=== PATIENT | male | born 1940 | race Caucasian/White ===

== ENCOUNTER 2017-06-16 14:39 | Outpatient (CLI) | payer MEDICARE, OTHER ==
--- NOTE | 2017-06-24 08:51 | PFT ---
PATIENT HISTORY: HEIGHT: 70 IN WEIGHT: 222 LBS SMOKER: QUIT HOW LON YEARS PACKS PER DAY:3 PRODUCTIVE COUGH: YES LUNG DISEASE: PHYSICIAN INTERPRETATION FINAL REPORT: Moderate reduction in VC and expiratory flows. There was a moderate improvement following the bronchodilator. TLC and RV are normal. IMPRESSION: Restrictive impairment, with borderline reduction in the diffusion capacity. Medical Supervisor: SHAGGY Construction Representative: SHAGGY MEADOWS
== END 2017-06-16 14:40 | disposition home or self-care (01) ==
LOC: CP 14:39
PROVIDERS: ATTEND Family Medicine
DX: R06.09 Other forms of dyspnea (principal)
CPT/HCPCS: 94060; 94727; 94729

== ENCOUNTER 2017-09-08 12:22 | Day surgery (SDC) | payer MEDICARE ==
[2017-09-07 09:25] VITALS: BMI 30.5
--- NOTE | 2017-09-08 15:51 | RAD ---
2 VIEWS SKULL: Date: 09/08/17 INDICATION: MRI clearance. History of prior metal in eyes. FINDINGS: There is no evidence of metallic foreign body seen overlying either orbit or within the scalp or skul l. IMPRESSION: No evidence of foreign body. Patient is cleared for MRI. POS: [facility]
--- NOTE | 2017-09-08 16:16 | MRI ---
MRI CERVICAL SPINE: 09/08/17 Multiplanar and multisequential imaging cervical spine obtained. HISTORY: Neck pain. COMPARISON: No comparison. Cervical vertebrae maintain height and alignment. There is loss of disc space at all levels of the ce rvical spine. Mild degenerative osteophytes are seen from the cervical vertebrae. At C3-4, there is posterior spondylosis which effaces anterior subarachnoid space. No cord impingemen t and foraminal stenosis. At C4-5, mild disc bulge and spondylosis effaces the anterior subarachnoid space. These changes abut the cord. no evidence of significant foraminal stenosis. At C5-6, mild disc bulge and spondylosis efface the anterior subarachnoid space without significant c ord impingement. No significant foraminal encroachment. At C6-7, mild disc bulge and spondylosis. There is mild effacement of the anterior subarachnoid space . No cord impingement. No foraminal stenosis seen. Cervical cord signal appears normal. IMPRESSION: There are mild spondylitic changes in the cervical spine as described above. These changes abut the c ord at C4-5. POS: [facility]
== END 2017-09-08 17:10 | disposition home or self-care (01) ==
LOC: SDC/OP 12:22
PROVIDERS: ATTEND Internal Medicine
DX: M47.812 Spondylosis without myelopathy or radiculopathy, cervical region (principal); M50.221 Other cervical disc displacement at C4-C5 level; I25.10 Atherosclerotic heart disease of native coronary artery without angina pectoris; G47.30 Sleep apnea, unspecified; F32.9 Major depressive disorder, single episode, unspecified; E11.40 Type 2 diabetes mellitus with diabetic neuropathy, unspecified; D64.9 Anemia, unspecified; E66.9 Obesity, unspecified; Z68.31 Body mass index [BMI] 31.0-31.9, adult; Z79.82 Long term (current) use of aspirin; Z79.84 Long term (current) use of oral hypoglycemic drugs; Z79.51 Long term (current) use of inhaled steroids; Z79.899 Other long term (current) drug therapy; Z88.0 Allergy status to penicillin; Z88.7 Allergy status to serum and vaccine; Z88.8 Allergy status to other drugs, medicaments and biological substances; Z91.048 Other nonmedicinal substance allergy status
CPT/HCPCS: 36416; 70250; 72141

== ENCOUNTER 2017-10-01 21:35 | Inpatient (IN) | payer MEDICARE, OTHER ==
[2017-10-01] MEDS ORDERED: Ibuprofen 200 MG TAB ONE ×2 (22:14→22:17)
[2017-10-01 22:16] LABS: #Basophils 0.1 thou/uL (0.0-0.2); #Eosinphils 0.2 thou/uL (0.0-0.7); #Monocytes 0.9 thou/uL (0.11-0.59); #Neutrophils 8.1 thou/uL (1.40-6.50); %Basophils 0.6 % (0.0-1.0); %Eosinophils 2.3 % (0.0-10.0); %Lymphocytes 9.3 % (21.0-51.0); %Monocytes 8.7 % (0.0-10.0); %Neutrophils 79.1 % (42.0-75.0); Hemoglobin 12.3 g/dL (14.0-18.0); Mean Corpuscular HGB CONC 34.9 g/dL (32.0-36.0); Mean Corpuscular Hemoglobin 32.6 pg (27.0-31.0); Mean Corpuscular Volume 93.5 fl (80.0-94.0); Mean Platelet Volume 6.4 fL (7.4-10.4); Platelet Count 197 thou/uL (130-400); RBC Distribution Width 12.4 % (11.5-14.5); Red Blood Cell (RBC) Count 3.78 mill/uL (4.70-6.10); White Blood Cell (WBC) Count 10.3 thou/uL (4.8-10.8)
[2017-10-01 22:31] LABS: Lactic Acid 1.4 mmol/L (0.5-2.2)
[2017-10-01 22:37] LABS: ALT (SGPT) 15 U/L (8-55); AST (SGOT) 28 U/L (5-34); Albumin 4.3 g/dL (3.4-4.8); Alkaline Phosphatase 49 U/L (40-150); Anion Gap 15 mmol/L (10-20); BUN (Urea Nitrogen) 24 mg/dL (8.4-25.7); Bilirubin, Total 0.9 mg/dL (0.2-1.2); Calc. Creatinine Clearance 0 mL/min (70-130); Calcium 9.8 mg/dL (7.8-10.44); Carbon Dioxide 24 mmol/L (23-31); Chloride 102 mmol/L (98-107); Estimated GFR-MDRD 42; Globulin 3.2 g/dL (2.4-3.5); Glucose 60 mg/dL (83-110); Protein, Total 7.5 g/dL (5.8-8.1); Sodium 137 mmol/L (136-145)
--- NOTE | 2017-10-01 22:45 | RAD ---
CHEST ONE VIEW: 10/01/17 HISTORY: Cough. COMPARISON: None. FINDINGS: Portable upright chest: Normal cardiac silhouette. Pulmonary vessels and hilum are normal. Costophrenic angles are clear. No masses or consolidation. No pneumothorax or osseous abnormalities. IMPRESSION: No acute cardiopulmonary process. POS: [facility]
[2017-10-01 22:53] LABS: Bilirubin Negative (Negative); Blood, Urine Negative (Negative); Glucose, Urine (Dipstick) Negative (Negative); Leukocyte Negative (Negative); Nitrite Negative (Negative); Protein, Urine (Dipstick) 100 mg/dL (Neg-Trace); Specific Gravity, Urine 1.025 (1.005-1.030); Urobilinogen 0.2 mg/dL (0.2-1.0)
[2017-10-01 22:57] LABS: Clarity Hazy (Clear)
[2017-10-01 23:03] LABS: Bacteria/HPF None Seen HPF (None Seen); Hyaline Casts/LPF 4-6 HYALINE CAST LPF (0-3 Hyaline); RBC/HPF 0-3 HPF (0-3); WBC/HPF 0-3 HPF (0-3); Yeast-All Forms None Seen HPF (None Seen)
[2017-10-02] MEDS ORDERED: Sodium Chloride 0.9% 1,000 ML IV SCH (02:16)
[2017-10-02] MEDS ORDERED: Ondansetron HCl/PF 4 MG/2 ML Vial IVP PRN ×2 (02:16→10:11)
[2017-10-02] MEDS ORDERED: Ondansetron ODT 4 MG TAB SL PRN (02:16)
[2017-10-02] MEDS ORDERED: Ondansetron ODT 4 MG TAB PO PRN (10:11)
[2017-10-02] MEDS ORDERED: Nitroglycerin 0.4 MG TAB (25 Tab Bottle) PO PRN (10:11)
[2017-10-02] MEDS ORDERED: Senokot 8.6 MG TAB PO PRN (10:11)
[2017-10-02] MEDS ORDERED: Acetaminophen 325 MG TAB PO PRN (10:11)
[2017-10-02] MEDS ORDERED: Insulin Regular 300 UNITS/3 ML VIAL SC PRN ×2 (10:22)
[2017-10-02] MEDS ORDERED: Dextrose 5% in Water 1,000 ML IV PRN (10:22)
[2017-10-02] MEDS ORDERED: Dextrose 50% Abboject 50 ML SYRINGE SLOW IVP PRN (10:22)
[2017-10-02] MEDS ORDERED: Vancomycin HCl 1 GM in Premix Bag 1 BAG IVPB SCH (10:30)
[2017-10-02 10:37] LABS: #Basophils 0.1 thou/uL (0.0-0.2); #Eosinphils 0.3 thou/uL (0.0-0.7); #Lymphocytes 1.2 thou/uL (1.20-3.40); #Monocytes 0.7 thou/uL (0.11-0.59); #Neutrophils 3.5 thou/uL (1.40-6.50); %Basophils 0.9 % (0.0-1.0); %Eosinophils 5.9 % (0.0-10.0); %Lymphocytes 20.4 % (21.0-51.0); %Monocytes 11.8 % (0.0-10.0); %Neutrophils 61.1 % (42.0-75.0); Hemoglobin 11.7 g/dL (14.0-18.0); Mean Corpuscular HGB CONC 32.8 g/dL (32.0-36.0); Mean Corpuscular Hemoglobin 31.7 pg (27.0-31.0); Mean Corpuscular Volume 96.4 fl (80.0-94.0); Mean Platelet Volume 6.4 fL (7.4-10.4); Platelet Count 164 thou/uL (130-400); RBC Distribution Width 12.5 % (11.5-14.5); Red Blood Cell (RBC) Count 3.68 mill/uL (4.70-6.10); White Blood Cell (WBC) Count 5.8 thou/uL (4.8-10.8)
[2017-10-02 10:52] LABS: ALT (SGPT) 14 U/L (8-55); AST (SGOT) 27 U/L (5-34); Albumin 3.9 g/dL (3.4-4.8); Alkaline Phosphatase 45 U/L (40-150); Anion Gap 14 mmol/L (10-20); BUN (Urea Nitrogen) 27 mg/dL (8.4-25.7); Bilirubin, Total 0.5 mg/dL (0.2-1.2); CRP (Inflammatory) 6.29 mg/dL (= or < 0.5); Calc. Creatinine Clearance 46 mL/min (70-130); Calcium 8.9 mg/dL (7.8-10.44); Carbon Dioxide 24 mmol/L (23-31); Chloride 105 mmol/L (98-107); Estimated GFR-MDRD 35; Globulin 2.7 g/dL (2.4-3.5); Glucose 90 mg/dL (83-110); Magnesium 1.5 mg/dL (1.6-2.6); Phosphorus 4.1 mg/dL (2.3-4.7); Potassium 3.9 mmol/L (3.5-5.1); Protein, Total 6.6 g/dL (5.8-8.1); Sodium 139 mmol/L (136-145)
[2017-10-02 10:56] LABS: Troponin I Less than 0.010 ng/mL (< 0.028)
[2017-10-02] MEDS: Sodium Chloride 0.9% 1,000 ML IV SCH ×2 (11:20→16:49)
[2017-10-02] MEDS ORDERED: Chloraseptic Spray 180 ml Bottle PO PRN (11:21)
[2017-10-02] MEDS ORDERED: Benzonatate 100 MG CAP PO PRN (11:21)
[2017-10-02] MEDS ORDERED: Cepastat Lozenges 1 LOZ PO PRN (11:21)
[2017-10-02] MEDS ORDERED: guaiFENesin ER 600 MG TAB PO SCH (11:30)
[2017-10-02] MEDS ORDERED: Magnesium 2 GM/NS 0.9% 100 ML 2 GM in Premix Bag 1 BAG IVPB SCH (11:30)
--- NOTE | 2017-10-02 11:57 | RAD ---
PA AND LATERAL CHEST: Date: 10/02/17 HISTORY: Shortness of breath, fever, cough. COMPARISON: 10/01/17. FINDINGS: Cardiac silhouette and pulmonary vasculature are within normal limits. Lungs remain clear. Vascular c alcifications seen in thoracic aorta. There has been no interval change from prior exam. IMPRESSION: No acute cardiopulmonary process. POS: [facility]
[2017-10-02] MEDS: Vancomycin HCl 1.5 GM, Admixture Fee 1 EACH in Sodium Chloride 0.9% 250 ML 300 ML IVPB SCH (12:16)
[2017-10-02 14:17] VITALS: BMI 31.4
--- NOTE | 2017-10-02 15:14 | CON ---
DATE OF CONSULTATION: 10/02/2017 REASON: Fever. HISTORY OF PRESENT ILLNESS: A 77-year-old patient who has a history of coronary disease with stentin g in the past, type 2 diabetes, glaucoma, hyperlipidemia, and hypertension who was in his usual state until yesterday when he developed sore throat followed by fever up to 101.6 associated with cough, n o sputum production, some headache, no visual symptoms. No chest pain, no abdominal pain, no genitou rinary symptoms or diarrhea. No joint symptoms or skin disorder. Apparently, he had visited [place] with his daughter where she went to a doctor's clinic and he was there with her and may have been e xposed to some infectious agent while in the waiting room. No other travel history. PAST MEDICAL HISTORY: Includes hypertension, coronary artery disease, diabetes mellitus type 2, glau coma, hyperlipidemia, and he also has a history of prostate cancer in remission after prostatectomy. ALLERGIES: IODINE and TETANUS VACCINE. SOCIAL HISTORY: He is retired. 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 Former smoker, no alcoholic beverage use. No drug use. MEDICATIONS: Crestor, tramadol, pantoprazole, verapamil, glipizide, metformin, niacin, nortriptyline , aspirin. CURRENT MEDICATIONS: Include DuoNeb, Ecotrin, Tessalon, dextrose, Colace, glucagon, Mucinex, levoflo xacin, ondansetron. PHYSICAL EXAMINATION: VITAL SIGNS: Here in the hospital, he has been afebrile, blood pressure 140/60, pulse 84, respiratio ns 16, and O2 sat 94%. SKIN: Not remarkable. No lymphadenopathy. HEENT: Normal. Oral cavity is moist. Quite a few teeth in place in fairly decent shape. NECK: Supple. LUNGS: With scattered inspiratory crackles in both right and left hemithorax with wheezing right and left side. HEART: S1, S2, regular rate. No murmurs. No S3 or S4. ABDOMEN: Soft, not distended or tender. No ascites. No bladder distention. GENITOURINARY: No genital abnormalities. EXTREMITIES: No joint inflammatory activity. Pulses 1+ in dorsalis pedis. Plantar responses are fl exor. Moves all extremities equally. NEUROLOGIC: Cognitive function appears to be intact. LABORATORY DATA AND IMAGING DATA: White cell count is 5.8, hemoglobin 11.7, MCV 96, platelets 164, 6 1% neutrophils, on arrival was 79% neutrophils. His creatinine last baseline result is 1.12 in 09/25 16 and then in June it was up to 1.74, now it is 1.89. Liver profile is normal. CRP 6.29, albumi n 3.9. Urinalysis with 0-3 wbc's, 100 protein and blood cultures thus far negative. Influenza A and B antigen negative. ASSESSMENT: Type 2 diabetes, hypertension, coronary artery disease, new onset of fever of acute natu re with respiratory symptoms and normal chest x-ray with abnormal lung examination. DISCUSSION: Differential diagnosis includes viral pneumonitis versus bacterial pneumonitis, noninfec tious hypersensitivity pneumonitis is less likely, but not completely ruled out or other autoimmune p rocesses or malignancy less likely. The respiratory pathogen PCR panel has been submitted. Could co nsider discontinuing Levaquin by tomorrow and then discharge planning. As long as he continues to ma nifest resolution of temperature increase and persistence of improvement in peripheral WBC count. In fluenza is transmitted year around as well as other viral pathogens and that would be my main concern at this point in time. He does have decrease in glomerular filtration rate, which could be related to progression of his diabetic nephropathy and will likely need to continue evaluation in the outpati ent setting for that.
[2017-10-02 15:16] LABS: Legionella Urinary Ag Negative (Negative); Strep pneumo Urine Ag NEGATIVE (NEGATIVE)
--- NOTE | 2017-10-02 17:27 | PDOC.PN ---
- Subjective Encounter Start Date: 10/02/17 Encounter Start Time: 16:00 Patient seen and examined. - Objective Resuscitation Status: Resuscitation Status FULL:Full Resuscitation MAR Reviewed: Yes Vital Signs & Weight: Vital Signs (12 hours) Temp Pulse Resp BP Pulse Ox 10/02/17 16:00 99.5 F 80 16 108/59 L 93 L 10/02/17 14:12 99.4 F 84 16 142/66 H 94 L 10/02/17 10:35 98.6 F 67 12 113/56 L 95 Weight Weight 219 lb 6 oz I&O: 10/01/17 10/02/17 10/03/17 06:59 06:59 06:59 Intake Total 980 Output Total 350 Balance 630 Result Diagrams: 10/02/17 10:24 10/02/17 10:24 Additional Labs: Accuchecks 10/02/17 10/02/17 17:15 10:43 POC Glucose 139 H 96 Radiology Reviewed by me: Yes (CXR - No infiltrate) EKG Reviewed by me: Yes (Tele SR) Phys Exam - Physical Examination Ill appearing HEENT: PERRLA, moist MMs, sclera anicteric Neck: no nodes, no JVD, supple Respiratory: no wheezing, clear to auscultation bilateral Bibasilar rales/rhonchi, Symmetrical Cardiovascular: RRR, no rub Gastrointestinal: soft, non-tender, no distention, positive bowel sounds Musculoskeletal: no edema, pulses present Neurological: non-focal, normal sensation, moves all 4 limbs Lymphatic: no nodes (neck) Psychiatric: normal affect, A&O x 3 Skin: no rash, normal turgor Dx/Plan - Plan DVT proph w/SCDs * Dictated Review of Systems - Medications/Allergies Allergies/Adverse Reactions: Allergies Allergy/AdvReac Type Severity Reaction Status Date / Time iodine Allergy Rash Verified 09/07/17 08:57 Penicillins Allergy Verified 10/02/17 02:57 povidone-iodine Allergy Rash Verified 09/07/17 08:57 [From Betadine] soap [From Betadine] Allergy Rash Verified 09/07/17 08:57 Tetanus Vaccines and Toxoid Allergy Rash Verified 09/07/17 08:57 [Tetanus Vaccines & Toxoid] Medications: Current Medications Acetaminophen (Tylenol) 650 mg PO Q4H PRN PRN Reason: Headache/Fever or Pain Albuterol/Ipratropium (Duoneb) 3 ml NEB [id number] PRN PRN Reason: SOB &/or Wheezing Aspirin (Ecotrin) 325 mg PO HS [facility] Benzonatate (Tessalon) 100 mg PO TID PRN PRN Reason: Cough Dextrose/Water (Dextrose 50%) 25 gm SLOW IVP PRN PRN PRN Reason: Hypoglycemia Docusate Sodium (Colace) 100 mg PO BID [facility] Glucagon (Glucagon) 1 mg IM PRN PRN PRN Reason: Hypoglycemia Guaifenesin (Mucinex) 600 mg PO Q12HR [facility] Sodium Chloride (Normal Saline 0.9%) 1,000 mls @ 150 mls/hr IV .Q6H40M [facility] Last Admin: 10/02/17 16:49 Dose: 1,000 mls Levofloxacin 500 mg/ Device 100 mls @ 100 mls/hr IVPB Q24HR [facility] Last Admin: 10/02/17 12:16 Dose: 100 mls Dextrose/Water (D5w) 1,000 mls @ 0 mls/hr IV .Q0M PRN; As Directed PRN Reason: Hypoglycemia Vancomycin HCl 1.5 gm/Miscellaneous Medication 1 each/ Sodium Chloride 300 mls @ 200 mls/hr IVPB 1200 [facility] Last Admin: 10/02/17 12:16 Dose: 300 mls Insulin Human Regular (Humulin R) 0 units SC .MILD SLIDING SCALE PRN PRN Reason: Mild Correctional Scale Insulin Human Regular (Humulin R) 0 units SC .BEDTIME SLIDING SC PRN PRN Reason: Bedtime Correctional Scale Miscellaneous Medication (Pharmacy To Dose) 1 each IVPB ASDIR [facility] Multivitamins/Minerals (Ocuvite With Lutein) 1 tab PO DAILY [facility] Nitroglycerin (Nitrostat) 0.4 mg PO Q5MIN PRN PRN Reason: Chest Pain Nortriptyline HCl (Pamelor) 50 mg PO HS [facility] Ondansetron HCl (Zofran Odt) 4 mg PO Q6H PRN PRN Reason: Nausea/Vomiting Ondansetron HCl (Zofran) 4 mg IVP Q6H PRN PRN Reason: Nausea/Vomiting Pantoprazole Sodium (Protonix) 40 mg PO DAILY [facility] Phenol (Chloraseptic [place] 180 Ml Bot) 0 ml PO BIDPRN PRN PRN Reason: Sore Throat Rosuvastatin Calcium (Crestor) 20 mg PO DAILY [facility] Saccharomyces Boulardii (Florastor) 250 mg PO DAILY [facility] Senna (Senokot) 2 tab PO HSPRN PRN PRN Reason: Constipation Sodium Chloride (Flush - Normal Saline) 10 ml IVF Q12HR [facility] Sodium Chloride (Flush - Normal Saline) 10 ml IVF PRN PRN PRN Reason: Saline Flush Throat Lozenges (Cepastat Lozenges) 1 kayla PO Q2H PRN PRN Reason: Sore Throat
--- NOTE | 2017-10-02 18:12 | HP ---
DATE OF ADMISSION: 10/02/2017 PRIMARY CARE PHYSICIAN: Dr. Naveed Salguero. CHIEF COMPLAINT: Fever. HISTORY OF PRESENT ILLNESS: Patient is a 77-year-old male with hypertension and diabetes mellitus ty pe 2, presented to the emergency room with the above complaints. Over the last 24 hours, also patient developed fever up to 104 degrees Fahrenheit along with sore thr oat and stuffy nose. He only had mild sputum production. There was no significant shortness of elmer th or wheezing reported. No sick contacts. He denies recent immobilization, travel, nausea, vomitin g, diarrhea, constipation, altered mentation, dysuria, hematuria, urgency or skin rash. In the emergency room, his initial vital signs showed temperature of 103 with respiration of 16, puls e rate of 93 with blood pressure of 106/60. In the emergency room, his blood pressure dropped to sys tolic 70s. He received 2 liters of IV fluid along with Motrin and Rocephin in the emergency room. C hest x-ray was negative for infiltrate. PAST MEDICAL HISTORY: 1. Diabetes mellitus type 2. 2. Diabetic neuropathy. 3. Hypertension. 4. Obstructive sleep apnea. 5. Coronary artery disease followed by Dr. Rosen. 6. Benign prostatic hypertrophy. 7. Depression. PAST SURGICAL HISTORY: 1. Prostatectomy. 2. Cardiac stent placement in 2004. ALLERGIES: The patient is allergic to IODINE, TETANUS VACCINE and TOXOID. CURRENT HOME MEDICATIONS: Verapamil 120 mg daily, valsartan/HCTZ 320/12.5 daily, Crestor 20 mg daily , aspirin 325 mg at bedtime, glipizide 10 mg q.a.m., Victoza bedtime, metformin 1000 mg b.i.d., multi vitamin 1 tablet daily, niacin extended release 1000 mg at bedtime, nortriptyline 50 mg at bedtime, P rotonix 40 mg daily. SOCIAL HISTORY: Patient is a former smoker. He denies current use of smoking, alcohol or drug use. He makes his own decisions with the help of his family. He is FULL [employer]. FAMILY HISTORY: Father at the age of 93 with stroke. Mother had some heart problems. One brother in 1942 due to congenital spinal defect. REVIEW OF SYSTEMS: The following complete review of systems was negative, unless otherwise mentioned in the HPI or below: Constitutional: Weight loss or gain, ability to conduct usual activities. Skin: Rash, itching. Eyes: Double vision, pain. ENT/Mouth: Nose bleeding, neck stiffness, pain, tenderness. Cardiovascular: Palpitations, dyspnea on exertion, orthopnea. Respiratory: Shortness of breath, wheezing, cough, hemoptysis, fever or night sweats. Gastrointestinal: Poor appetite, abdominal pain, heartburn, nausea, vomiting, constipation, or diarr hea. Genitourinary: Urgency, frequency, dysuria, nocturia. Musculoskeletal: Pain, swelling. Neurologic/Psychiatric: Anxiety, depression. Allergy/Immunologic: Skin rash, bleeding tendency. PHYSICAL EXAMINATION: Please refer to my progress note. LABORATORY DATA: Please refer to my progress note. IMAGING DATA: Please refer to my progress note. IMPRESSION: 1. Sepsis with acute organ dysfunction secondary to suspected pneumonia, questionable viral. 2. Acute kidney injury on chronic kidney disease stage 3. 3. Diabetes mellitus type 2 with diabetic neuropathy. 4. Hypoglycemia. 5. Chronic anemia, probably secondary to renal insufficiency. 6. Obesity with body mass index 31.5. 7. Obstructive sleep apnea on continuous positive airway pressure. 8. Coronary artery disease. 9. Depression without any suicidal ideation. 10. Hypomagnesemia. PLAN: The patient will be monitored on the telemetry unit. Blood cultures have been sent. Influenz a testing was negative. CRP 6.25. Infectious Disease will be consulted. We will check strep pneumo minerva and legionella antigen. We will also get respiratory viral panel. Insulin sliding scale. We wi ll hold glipizide, metformin, and Victoza due to hypoglycemia. We will continue aspirin. We will ho ld the valsartan and verapamil due to hypotension with systolic blood pressure of 72 in the emergency room. We will repeat labs in a.m. Plan of care was discussed with the patient in detail. He stated understanding. The patient will require 2-3 days for stabilization.
[2017-10-02] MEDS ORDERED: Nortriptyline HCl 25 MG CAP PO SCH (21:00)
[2017-10-02] MEDS ORDERED: Famotidine 20 MG TAB PO SCH (21:00)
[2017-10-02] MEDS ORDERED: Aspirin 325 mg Enteric Coated Tablet PO SCH (21:00)
[2017-10-02] MEDS ORDERED: Nortriptyline 10 MG CAP PO SCH (21:00)
[2017-10-02] MEDS: guaiFENesin ER 600 MG TAB PO SCH (21:06)
[2017-10-02] MEDS: Docusate 100 MG CAP PO SCH (21:06)
[2017-10-03] MEDS: Sodium Chloride 0.9% 1,000 ML IV SCH ×2 (00:35→07:43)
[2017-10-03 05:33] LABS: #Eosinphils 0.3 thou/uL (0.0-0.7); #Lymphocytes 1.4 thou/uL (1.20-3.40); #Monocytes 0.8 thou/uL (0.11-0.59); #Neutrophils 4.1 thou/uL (1.40-6.50); %Basophils 0.5 % (0.0-1.0); %Eosinophils 5.2 % (0.0-10.0); %Lymphocytes 20.8 % (21.0-51.0); %Monocytes 12.2 % (0.0-10.0); %Neutrophils 61.4 % (42.0-75.0); Hemoglobin 10.3 g/dL (14.0-18.0); Mean Corpuscular HGB CONC 34.4 g/dL (32.0-36.0); Mean Corpuscular Hemoglobin 32.4 pg (27.0-31.0); Mean Corpuscular Volume 94.1 fl (80.0-94.0); Mean Platelet Volume 6.7 fL (7.4-10.4); Platelet Count 155 thou/uL (130-400); RBC Distribution Width 12.3 % (11.5-14.5); Red Blood Cell (RBC) Count 3.19 mill/uL (4.70-6.10); White Blood Cell (WBC) Count 6.7 thou/uL (4.8-10.8)
[2017-10-03 06:13] LABS: ALT (SGPT) 13 U/L (8-55); AST (SGOT) 28 U/L (5-34); Albumin 3.6 g/dL (3.4-4.8); Alkaline Phosphatase 38 U/L (40-150); Anion Gap 9 mmol/L (10-20); BUN (Urea Nitrogen) 20 mg/dL (8.4-25.7); Bilirubin, Total 0.5 mg/dL (0.2-1.2); Calc. Creatinine Clearance 67 mL/min (70-130); Calcium 8.4 mg/dL (7.8-10.44); Carbon Dioxide 25 mmol/L (23-31); Chloride 105 mmol/L (98-107); Estimated GFR-MDRD 52; Globulin 2.5 g/dL (2.4-3.5); Glucose 89 mg/dL (83-110); Magnesium 1.7 mg/dL (1.6-2.6); Potassium 3.8 mmol/L (3.5-5.1); Protein, Total 6.1 g/dL (5.8-8.1); Sodium 135 mmol/L (136-145)
[2017-10-03] MEDS ORDERED: Rosuvastatin 20 MG TAB PO SCH (09:00)
[2017-10-03] MEDS ORDERED: Saccharomyces boulardii 250 MG CAP PO SCH (09:00)
[2017-10-03] MEDS ORDERED: Vit A,C & E/Lutein/Minerals Tablet PO SCH (09:00)
[2017-10-03] MEDS: Docusate 100 MG CAP PO SCH (09:34)
[2017-10-03] MEDS: guaiFENesin ER 600 MG TAB PO SCH (09:34)
--- NOTE | 2017-10-03 10:49 | PDOC.PN ---
- Subjective Encounter Start Date: 10/03/17 Encounter Start Time: 07:10 -: old records requested/rev Patient seen and examined. No new complaints. No overnight events - Objective Resuscitation Status: Resuscitation Status FULL:Full Resuscitation MAR Reviewed: Yes Vital Signs & Weight: Vital Signs (12 hours) Temp Pulse Resp BP BP BP BP 10/03/17 07:52 98.4 F 66 18 136/60 10/03/17 05:58 10/03/17 04:04 87 109/55 L 10/03/17 04:02 80 124/58 L 10/03/17 04:00 98.1 F 67 19 132/56 L Pulse Ox 10/03/17 07:52 94 L 10/03/17 05:58 96 10/03/17 04:04 10/03/17 04:02 10/03/17 04:00 97 Weight Weight 221 lb 1.6 oz I&O: 10/02/17 10/03/17 10/04/17 06:59 06:59 06:59 Intake Total 3335 Output Total 2875 Balance 460 Result Diagrams: 10/03/17 04:45 10/03/17 04:45 Additional Labs: Accuchecks 10/03/17 10/02/17 10/02/17 05:59 17:15 10:43 POC Glucose 100 139 H 96 Radiology Reviewed by me: Yes EKG Reviewed by me: Yes Phys Exam - Physical Examination Constitutional: NAD HEENT: PERRLA, moist MMs, sclera anicteric Neck: no JVD, supple Respiratory: no wheezing, no rales, no rhonchi Cardiovascular: RRR, no significant murmur, no rub Gastrointestinal: soft, non-tender, no distention, positive bowel sounds Musculoskeletal: no edema, pulses present Neurological: non-focal, normal sensation, moves all 4 limbs Lymphatic: no nodes Psychiatric: normal affect, A&O x 3 Skin: no rash, normal turgor Dx/Plan (1) Acute bronchitis due to Rhinovirus Code(s): J20.6 - ACUTE BRONCHITIS DUE TO RHINOVIRUS Status: Acute (2) Acute renal failure superimposed on stage 3 chronic kidney disease Code(s): N17.9 - ACUTE KIDNEY FAILURE, UNSPECIFIED; N18.3 - CHRONIC KIDNEY DISEASE, STAGE 3 (MODERATE) Status: Acute (3) Diabetes type 2, controlled Code(s): E11.9 - TYPE 2 DIABETES MELLITUS WITHOUT COMPLICATIONS Status: Chronic (4) Dyslipidemia Code(s): E78.5 - HYPERLIPIDEMIA, UNSPECIFIED Status: Chronic (5) GERD (gastroesophageal reflux disease) Code(s): K21.9 - GASTRO-ESOPHAGEAL REFLUX DISEASE WITHOUT ESOPHAGITIS Status: Chronic (6) Hypertension Code(s): I10 - ESSENTIAL (PRIMARY) HYPERTENSION Status: Chronic (7) Obesity (BMI 30.0-34.9) Code(s): E66.9 - OBESITY, UNSPECIFIED Status: Chronic - Plan cont current plan of care, continue antibiotics * medication reviewed as below * symptomatic treatment * stable for discharge * see discharge summery. Review of Systems - Review of Systems Eyes: negative: Pain, Vision Change, Conjunctivae Inflammation, Eyelid Inflammation, Redness, Other ENT: negative: Ear Pain, Ear Discharge, Nose Pain, Nose Discharge, Nose Congestion, Mouth Pain, Mouth Swelling, Throat Pain, Throat Swelling, Other Respiratory: negative: Cough, Dry, Shortness of Breath, Hemoptysis, SOB with Excertion, Pleuritic Pain, Sputum, Wheezing Cardiovascular: negative: chest pain, palpitations, orthopnea, paroxysmal nocturnal dyspnea, edema, light headedness, other Gastrointestinal: negative: Nausea, Vomiting, Abdominal Pain, Diarrhea, Constipation, Melena, Hematochezia, Other Genitourinary: negative: Dysuria, Frequency, Incontinence, Hematuria, Retention , Other Musculoskeletal: negative: Neck Pain, Shoulder Pain, Arm Pain, Back Pain, Hand Pain, Leg Pain, Foot Pain, Other Skin: negative: Rash, Lesions, Jason, Bruising, Other - Medications/Allergies Allergies/Adverse Reactions: Allergies Allergy/AdvReac Type Severity Reaction Status Date / Time iodine Allergy Rash Verified 09/07/17 08:57 Penicillins Allergy Verified 10/02/17 02:57 povidone-iodine Allergy Rash Verified 09/07/17 08:57 [From Betadine] soap [From Betadine] Allergy Rash Verified 09/07/17 08:57 Tetanus Vaccines and Toxoid Allergy Rash Verified 09/07/17 08:57 [Tetanus Vaccines & Toxoid] Medications: Current Medications Acetaminophen (Tylenol) 650 mg PO Q4H PRN PRN Reason: Headache/Fever or Pain Albuterol/Ipratropium (Duoneb) 3 ml NEB [id number] PRN PRN Reason: SOB &/or Wheezing Aspirin (Ecotrin) 325 mg PO HS [facility] Last Admin: 10/02/17 21:06 Dose: 325 mg Benzonatate (Tessalon) 100 mg PO TID PRN PRN Reason: Cough Dextrose/Water (Dextrose 50%) 25 gm SLOW IVP PRN PRN PRN Reason: Hypoglycemia Docusate Sodium (Colace) 100 mg PO BID [facility] Last Admin: 10/03/17 09:34 Dose: 100 mg Glucagon (Glucagon) 1 mg IM PRN PRN PRN Reason: Hypoglycemia Guaifenesin (Mucinex) 600 mg PO Q12HR [facility] Last Admin: 10/03/17 09:34 Dose: 600 mg Sodium Chloride (Normal Saline 0.9%) 1,000 mls @ 150 mls/hr IV .Q6H40M [facility] Last Admin: 10/03/17 07:43 Dose: 1,000 mls Levofloxacin 500 mg/ Device 100 mls @ 100 mls/hr IVPB Q24HR [facility] Last Admin: 10/02/17 12:16 Dose: 100 mls Dextrose/Water (D5w) 1,000 mls @ 0 mls/hr IV .Q0M PRN; As Directed PRN Reason: Hypoglycemia Vancomycin HCl 1.5 gm/Miscellaneous Medication 1 each/ Sodium Chloride 300 mls @ 200 mls/hr IVPB 1200 [facility] Last Admin: 10/02/17 12:16 Dose: 300 mls Insulin Human Regular (Humulin R) 0 units SC .MILD SLIDING SCALE PRN PRN Reason: Mild Correctional Scale Insulin Human Regular (Humulin R) 0 units SC .BEDTIME SLIDING SC PRN PRN Reason: Bedtime Correctional Scale Miscellaneous Medication (Pharmacy To Dose) 1 each IVPB ASDIR [facility] Multivitamins/Minerals (Ocuvite With Lutein) 1 tab PO DAILY [facility] Last Admin: 10/03/17 09:34 Dose: 1 tab Nitroglycerin (Nitrostat) 0.4 mg PO Q5MIN PRN PRN Reason: Chest Pain Nortriptyline HCl (Pamelor) 50 mg PO HS [facility] Last Admin: 10/02/17 21:06 Dose: 50 mg Ondansetron HCl (Zofran Odt) 4 mg PO Q6H PRN PRN Reason: Nausea/Vomiting Ondansetron HCl (Zofran) 4 mg IVP Q6H PRN PRN Reason: Nausea/Vomiting Pantoprazole Sodium (Protonix) 40 mg PO DAILY [facility] Last Admin: 10/03/17 09:34 Dose: 40 mg Phenol (Chloraseptic [place] 180 Ml Bot) 0 ml PO BIDPRN PRN PRN Reason: Sore Throat Rosuvastatin Calcium (Crestor) 20 mg PO DAILY [facility] Last Admin: 10/03/17 09:34 Dose: 20 mg Saccharomyces Boulardii (Florastor) 250 mg PO DAILY [facility] Last Admin: 10/03/17 09:34 Dose: 250 mg Senna (Senokot) 2 tab PO HSPRN PRN PRN Reason: Constipation Sodium Chloride (Flush - Normal Saline) 10 ml IVF Q12HR [facility] Last Admin: 10/03/17 09:35 Dose: 10 ml Sodium Chloride (Flush - Normal Saline) 10 ml IVF PRN PRN PRN Reason: Saline Flush Throat Lozenges (Cepastat Lozenges) 1 kayla PO Q2H PRN PRN Reason: Sore Throat
[2017-10-03] MEDS: Vancomycin HCl 1.5 GM, Admixture Fee 1 EACH in Sodium Chloride 0.9% 250 ML 300 ML IVPB SCH (11:17)
--- NOTE | 2017-10-03 12:39 | DIS ---
PRIMARY CARE PHYSICIAN: Dr. Naveed Salguero. DATE OF ADMISSION: 10/02/2017 DATE OF DISCHARGE: 10/03/2017 DISCHARGE DISPOSITION: Home. PRIMARY DISCHARGE DIAGNOSES: Acute bronchitis due to rhinovirus infection, acute on chronic kidney f ailure, and baseline chronic kidney disease stage 3. SECONDARY DISCHARGE DIAGNOSES: Obesity, hypertension, gastroesophageal reflux disease, dyslipidemia, diabetes type 2, and chronic kidney disease stage 3. PRIMARY PROCEDURE/OPERATION: None. RADIOLOGICAL INVESTIGATION: Chest x-ray. SIGNIFICANT LABORATORY DATA: WBC 6.7, hemoglobin 10.3, and platelet 155. Sodium 135, creatinine 1.3 3. LFT normal. Magnesium 1.7. Urine legionella antigen negative. Urine Streptococcal pneumonia an tigen negative. Urinalysis unremarkable. Blood culture negative, influenza negative. Respiratory v irus panel positive for rhinovirus. DISCHARGE MEDICATIONS: Aspirin 325 mg p.o. at bedtime, glipizide 10 mg p.o. daily, Mucinex 600 mg p. o. b.i.d. for 7 days, Levaquin 500 mg p.o. daily for 7 days, Victoza 1.8 mg subcutaneously at bedtime , metformin 1000 mg p.o. b.i.d., Ocuvite with Lutein 1 tablet p.o. daily, niacin ER 1000 mg p.o. at b edtime, nortriptyline 50 mg p.o. at bedtime, Protonix 40 mg p.o. daily, Crestor 20 mg p.o. daily, tra madol ER 200 mg p.o. daily, valsartan with hydrochlorothiazide 1 tablet p.o. daily, verapamil ER 120 mg p.o. daily, and vitamin B complex 1 tablet p.o. daily. CONTRAINDICATIONS: None. CODE STATUS: FULL CODE. INPATIENT CONSULTANTS: Dr. Monahan. ALLERGIES: IODINE, PENICILLIN, POVIDONE IODINE, shock TETANUS TOXOID. DISCHARGE PLAN: Post hospital, the patient will follow up with primary care physician in 1 week. HOSPITAL COURSE: A 77-year-old male with the above mentioned medical problem, who was admitted by Dr Kiana Wong. Please see his H&P for further details. The patient was having upper respiratory inf ection and high grade fever. Patient was positive for rhinovirus infection. His chest x-ray was unr emarkable. While in hospital, he was given IV fluid and treated with Rocephin and levofloxacin. Aurora richey did significantly better overnight in hospital. Dr. Monahan consulted and he was suspecting viral infection. Patient was given empirically Levaquin for 7 more days. The patient is instructed about symptomatic treatment. He is ambulatory and he is on room air. The patient is seen and examined at bedside today. Please see my progress note from today for furthe r detail. At this point, the patient wants to go home. He does not want to stay for culture result of blood and as he has dramatic improvement within 24 hours. He expresses understanding to go home t bryce. I instructed him to come back in hospital if he has fever or worsening of symptoms, but at this point , we are thinking that he is doing much better clinically. The patient is seen and examined at bedside today. Please see my progress note from today for furthe r detail.
[2017-10-03 12:42] VITALS: BP 146/70; TEMP 97.6
--- NOTE | 2017-10-06 13:43 | PQF ---
EMILEE LEZAMA NAYE MELVIN DO [id number] CLINICAL DOCUMENTATION CLARIFICATION FORM: POST DISCHARGE Addendum to original discharge summary date: ____ Late entry note date: Please send query to Dr. Wong as he admitted the patient, I never saw this patient____ DATE: 10/06/2017 ATTN: Please exercise your independent, professional judgment in responding to the clarification form. Clinical indicators are provided on the bottom of this form for your review Please check appropriate box(es): [ ] Sepsis due to: (Pna, UTI, gangrenous gall bladder, etc.) Due to: [ ] Device (please specify) [ ] Implant [ ] Graft [ ] Infusion [ ] SIRS due to non-infectious process (please specify etiology) [ ] with organ dysfunction [ ] without organ dysfunction [ ] Severe sepsis with acute organ dysfunction of: (Examples: respiratory failure, encephalopathy, acute kidney failure, other) [ ] Septic Shock [ ] Localized infection without sepsis [ ] Other diagnosis [ ] Unable to determine In addition, please specify: Present on Admission (POA): [ ] Yes [ ] No [ ] Unable to determine For continuity of documentation, please document condition throughout progress notes and discharge summary. Thank You. CLINICAL INDICATORS - SIGNS / SYMPTOMS / LABS Altered mental status x Fever or hypothermia (<96.8 F/36 C or > 100.4 F/38C) x Respiratory rate >20/min, Hypoxemia, SBP <100mmHg Metabolic acidosis Lactic Acid >2mmol/L, Increase BUN/[place]ather [place], decrease GFR, coag abnormalities, thrombocytopenia-plts <100k Oliguria Shock-hypotension resistant to IV fluid boluses WBC count (>12,000/mm^4 or <4000/mm^3 or 10% neuts, 10% bands) Hyperglycemia in absence of diabetes mellitus Positive blood cultures MTDD
--- NOTE | 2017-10-12 14:11 | PQF ---
EMILEE LEZAMA MALIK MD [id number] CLINICAL DOCUMENTATION CLARIFICATION FORM: POST DISCHARGE Addendum to original discharge summary date: ____ Late entry note date: __ DATE: ATTN: Please exercise your independent, professional judgment in responding to the clarification form. Clinical indicators are provided on the bottom of this form for your review Please check appropriate box(es): [ ] Sepsis due to: (Pna, UTI, gangrenous gall bladder, etc.) Due to: [ ] Device (please specify) [ ] Implant [ ] Graft [ ] Infusion [ ] SIRS due to non-infectious process (please specify etiology) [ ] with organ dysfunction [ ] without organ dysfunction [ ] Severe sepsis with acute organ dysfunction of: (Examples: respiratory failure, encephalopathy, acute kidney failure, other) [ ] Septic Shock [ ] Localized infection without sepsis [ ] Other diagnosis [ ] Unable to determine In addition, please specify: Present on Admission (POA): [ ] Yes [ ] No [ ] Unable to determine For continuity of documentation, please document condition throughout progress notes and discharge summary. Thank You. CLINICAL INDICATORS - SIGNS / SYMPTOMS / LABS Altered mental status Fever or hypothermia (<96.8 F/36 C or > 100.4 F/38C) Respiratory rate >20/min, Hypoxemia, WBC count (>12,000/mm^4 or <4000/mm^3 or 10% neuts, 10% bands) RISK FACTORS Bronchitis TREATMENTS: Please forward to Dr Pitts who dictated discharge summary. MTDD
--- NOTE | 2017-10-13 14:10 | PQF ---
EMILEE LEZAMA HARLEY, SUSANNA MOISE MD [id number] CLINICAL DOCUMENTATION CLARIFICATION FORM: POST DISCHARGE Addendum to original discharge summary date: ____ Late entry note date: __ DATE: 10/13/17 ATTN: Please exercise your independent, professional judgment in responding to the clarification form. Clinical indicators are provided on the bottom of this form for your review Please check appropriate box(es): [ ] Sepsis due to: (Pna, UTI, gangrenous gall bladder, etc.) Due to: [ ] Device (please specify) [ ] Implant [ ] Graft [ ] Infusion [ ] SIRS due to non-infectious process (please specify etiology) [ ] with organ dysfunction [ ] without organ dysfunction [ ] Severe sepsis with acute organ dysfunction of: (Examples: respiratory failure, encephalopathy, acute kidney failure, other) [ ] Septic Shock [ ] Localized infection without sepsis [ ] Other diagnosis [ x ] Unable to determine In addition, please specify: Present on Admission (POA): [ ] Yes [ ] No [ x ] Unable to determine For continuity of documentation, please document condition throughout progress notes and discharge summary. Thank You. CLINICAL INDICATORS - SIGNS / SYMPTOMS / LABS Fever or hypothermia (<96.8 F/36 C or > 100.4 F/38C) WBC count (>12,000/mm^4 or <4000/mm^3 or 10% neuts, 10% bands) RISK FACTORS Bronchitis TREATMENTS: IV antibiotics - broad spectrum MTDD
== END 2017-10-03 13:42 | disposition home or self-care (01) | DRG 202 ==
LOC: ERS 21:35 → 2SW 10-02 01:00 → OBSVTOIN 10-02 10:10 → 2NO 10-02 14:14
PROVIDERS: ADMIT Family Medicine; ATTEND Family Medicine
DX: J20.6 Acute bronchitis due to rhinovirus (principal); N17.9 Acute kidney failure, unspecified; E11.22 Type 2 diabetes mellitus with diabetic chronic kidney disease; E11.40 Type 2 diabetes mellitus with diabetic neuropathy, unspecified; N18.3 Chronic kidney disease, stage 3 (moderate); E66.9 Obesity, unspecified; K21.9 Gastro-esophageal reflux disease without esophagitis; E78.5 Hyperlipidemia, unspecified; Z88.0 Allergy status to penicillin; Z91.048 Other nonmedicinal substance allergy status; Z68.31 Body mass index [BMI] 31.0-31.9, adult; G47.33 Obstructive sleep apnea (adult) (pediatric); I25.10 Atherosclerotic heart disease of native coronary artery without angina pectoris; N40.0 Benign prostatic hyperplasia without lower urinary tract symptoms; F32.9 Major depressive disorder, single episode, unspecified; Z79.899 Other long term (current) drug therapy; Z79.82 Long term (current) use of aspirin; Z87.891 Personal history of nicotine dependence; E83.42 Hypomagnesemia; E11.649 Type 2 diabetes mellitus with hypoglycemia without coma; H40.9 Unspecified glaucoma
CPT/HCPCS: 36415; 36416; 71045; 71046; 80053; 81003; 81015; 83605; 83735; 84100; 84484; 85025; 86140; 87040; 87633; 87798; 87804; 87899; 93005; 94760; 96361; 96374; A4216; J0696; J1956; J3370; J3475; J7050

== ENCOUNTER 2018-01-28 15:50 | Outpatient (CLI) | payer MEDICARE, OTHER | END 2018-01-28 15:51 | disposition home or self-care (01) | LOC: BICRAD 15:50 | PROVIDERS: ATTEND Family Medicine | DX: J18.9 Pneumonia, unspecified organism (principal) | CPT/HCPCS: 71046 ==

== ENCOUNTER 2018-07-12 14:33 | Outpatient (CLI) | payer MEDICARE ==
--- NOTE | 2018-07-12 15:19 | RAD ---
EXAM: CHEST TWO VIEWS: History: COPD. Comparison: 01-28-18 FINDINGS: Heart size is within normal limits. The lungs are clear. No confluent pneumonia, overt edema, or pleu ral effusion. IMPRESSION: Mild stable chronic lung changes. No cardiomegaly, acute edema, pneumonia, or pleural effusion. Ather osclerosis of the aorta. POS: [facility]
== END 2018-07-12 14:34 | disposition home or self-care (01) ==
LOC: RAD 14:33
PROVIDERS: ATTEND Internal Medicine Critical Care Medicine
DX: J44.9 Chronic obstructive pulmonary disease, unspecified (principal); I70.0 Atherosclerosis of aorta; J98.4 Other disorders of lung
CPT/HCPCS: 71046

== ENCOUNTER 2018-08-16 15:02 | Outpatient (CLI) | payer MEDICARE ==
--- NOTE | 2018-08-16 17:10 | CT ---
CT PULMONARY LUNG SCAN PERFORMED WITHOUT CONTRAST: Date: 08/16/18 HISTORY: Patient with 30 year smoking history; quit smoking 20 years ago. This is a low dose lung screening fo r cancer. FINDINGS: There are numerous small (3-4 mm) pulmonary nodules identified. These are most numerous within the ri ght upper lobe, but also with small nodules in both lower lobes that are of similar size. Only one of these is calcified. A slightly more worrisome nodule measuring in the 8 mm range is seen in the left upper lobe, axial image 18. The borders of this may have some minimal lobulation. I do not appreciate significant mediastinal adenopathy. Coronary artery calcifications are present. IMPRESSION: 1. Lung-RADS Category 4A. A 3 month follow-up low dose CT is recommended for assessment. PET scan i s a consideration; however, this nodule is felt to be borderline in size for PET detection. 2. Category S: This modifier is given for the presence of coronary artery calcifications. 3. Clinical correlation as to any features that would suggest the possibility of metastatic disease. The distribution of the other pulmonary nodules would not be typical for metastatic disease. The pre sence of one calcified granuloma would raise the possibility that some of these changes could possibl y be related to old granulomatous disease. POS: [facility]
== END 2018-08-16 15:03 | disposition home or self-care (01) ==
LOC: CT 15:02
PROVIDERS: ATTEND Family Medicine
DX: Z87.891 Personal history of nicotine dependence (principal); I25.10 Atherosclerotic heart disease of native coronary artery without angina pectoris; R91.8 Other nonspecific abnormal finding of lung field; J84.10 Pulmonary fibrosis, unspecified
CPT/HCPCS: G0297

== ENCOUNTER 2018-11-12 07:57 | Outpatient (CLI) | payer MEDICARE ==
--- NOTE | 2018-11-12 09:26 | CT ---
Exam: NONCONTRAST CHEST CT CT LUNG SCAN LOW DOSE HISTORY:Follow-up left lung nodule. COMPARISON: None TECHNIQUE: Low-dose screening lung CT is performed utilizing institutional protocol FINDINGS: Lung screening specific (LUNG-RADS): Right lung: Irregular marginated 4 mm nodule in the right upper lobe. Irregular marginated 5 mm nodul e in the right upper lobe. 3 mm nodule in the right upper lobe. 2 and 3 mm nodules in the mid aspect of the right lower lobe. Two separate 3 mm nodules in the right lower lobe. Left lun.8 x 0.5 cm solid nodule in the left upper lobe, unchanged in size. No new nodules in the left upper lobe. 4 mm nodule in the superior segment of the left lower lobe. Potential significant incidentals (lung RADS category S): None Pulmonary incidentals:None Other incidentals: Atherosclerosis of the aorta. Coronary artery disease. IMPRESSION: 1. Lung RADS category 4a Stable nodularity left upper lobe. Consider follow-up low-dose CT in 3 month s. Conversely, PET imaging can be performed. 2. Lung Rask category S: Negative. No new or unknown potential significant incidental findings requir ing urgent additional evaluation 3. Other incidentals as above. Recommendation: Continued routine annual low-dose lung screening CT. Follow-up in one year. Transcribed Date/Time: 11/12/2018 9:39 AM
== END 2018-11-12 07:58 | disposition home or self-care (01) ==
LOC: CT 07:57
PROVIDERS: ATTEND Family Medicine
DX: Z12.2 Encounter for screening for malignant neoplasm of respiratory organs (principal); R91.8 Other nonspecific abnormal finding of lung field; R91.1 Solitary pulmonary nodule
CPT/HCPCS: G0297

== ENCOUNTER 2019-04-06 03:00 | Inpatient (IN) | payer MEDICARE ==
[2019-04-06 03:35] LABS: #Basophils 0.1 thou/uL (0.0-0.2); #Eosinphils 0.2 thou/uL (0.0-0.7); #Lymphocytes 1.4 thou/uL (1.20-3.40); #Monocytes 0.6 thou/uL (0.11-0.59); #Neutrophils 3.3 thou/uL (1.40-6.50); %Basophils 1.2 % (0.0-1.0); %Eosinophils 4.3 % (0.0-10.0); %Lymphocytes 25.1 % (21.0-51.0); %Monocytes 10.9 % (0.0-10.0); %Neutrophils 58.5 % (42.0-75.0); Hemoglobin 12.5 g/dL (14.0-18.0); Mean Corpuscular HGB CONC 34.8 g/dL (32.0-36.0); Mean Corpuscular Hemoglobin 31.5 pg (27.0-31.0); Mean Corpuscular Volume 90.6 fL (78.0-98.0); Platelet Count 206 thou/uL (130-400); RBC Distribution Width 13.1 % (11.5-14.5); Red Blood Cell (RBC) Count 3.96 mill/uL (4.70-6.10); White Blood Cell (WBC) Count 5.7 thou/uL (4.8-10.8)
[2019-04-06 03:56] LABS: ALT (SGPT) 24 U/L (8-55); AST (SGOT) 32 U/L (5-34); Alkaline Phosphatase 74 U/L (40-110); Anion Gap 14 mmol/L (10-20); BUN (Urea Nitrogen) 15 mg/dL (8.4-25.7); Bilirubin, Total 0.7 mg/dL (0.2-1.2); Calc. Creatinine Clearance 0 mL/min (70-130); Calcium 9.6 mg/dL (7.8-10.44); Carbon Dioxide 24 mmol/L (23-31); Chloride 105 mmol/L (98-107); Estimated GFR-MDRD 52; Globulin 3.1 g/dL (2.4-3.5); Glucose 314 mg/dL (83-110); Potassium 4.2 mmol/L (3.5-5.1); Protein, Total 7.1 g/dL (5.8-8.1); Sodium 139 mmol/L (136-145)
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
[2019-04-06] MEDS ORDERED: Haloperidol Lactate 5 MG/ML VIAL ONE (06:42)
[2019-04-06 07:30] LABS: Bilirubin Negative (Negative); Blood, Urine Negative (Negative); Glucose, Urine (Dipstick) 500 mg/dL (Negative); Leukocyte Negative (Negative); Nitrite Negative (Negative); Protein, Urine (Dipstick) 100 mg/dL (Neg-Trace); Urobilinogen 0.2 mg/dL (Less than 2)
[2019-04-06 07:32] LABS: Clarity Clear (Clear)
[2019-04-06 07:47] LABS: Bacteria/HPF None Seen HPF (None Seen); RBC/HPF 0-3 HPF (0-3); Squamous Epithelial 0-3 HPF (0-3); WBC/HPF 0-3 HPF (0-3)
[2019-04-06] MEDS ORDERED: Acetaminophen 325 MG TAB PO PRN ×2 (08:08→08:27)
[2019-04-06] MEDS ORDERED: Ondansetron PF 4 MG/2 ML Vial IVP PRN (08:08)
[2019-04-06] MEDS ORDERED: HYDROcodone/Acetaminophen 5/325 mg Tablet PO PRN ×2 (08:08)
[2019-04-06] MEDS ORDERED: Ondansetron ODT 4 MG TAB SL PRN (08:08)
[2019-04-06] MEDS ORDERED: Dextrose 50% Abboject 50 ML SYRINGE SLOW IVP PRN (08:27)
[2019-04-06] MEDS ORDERED: Dextrose 5% in Water 1,000 ML IV PRN (08:27)
--- NOTE | 2019-04-06 09:10 | RAD ---
PORTABLE CHEST: HISTORY: Mental status change. FINDINGS: The lungs appear clear. No infiltrate. Vascularity is mildly engorged. IMPRESSION: No acute lung process. POS: [facility]
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
[2019-04-06] MEDS: Enoxaparin Sodium 40 MG/0.4 ML SYRINGE SC SCH (10:55)
[2019-04-06] MEDS: Insulin Glargine 10 UNITS in Pre-Filled Syringe 1 EACH SC SCH (10:56)
[2019-04-06] MEDS: Sodium Chloride 0.9% 1,000 ML IV SCH ×2 (10:56→16:51)
[2019-04-06] MEDS: Aspirin 81 mg Enteric Coated Tablet PO SCH (10:56)
[2019-04-06] MEDS: Lactated Ringer's 1,000 ML IV SCH ×2 (11:12→20:03)
--- NOTE | 2019-04-06 12:12 | HP ---
I have discussed the case with Dr. Boom Guerrero and agreed with his assessment and plan. Briefly, Mr. White is a 79-year-old man who has had 3 days of increasing confusion according to his . He also has developed a shuffling gait and developed some urinary incontinence. Last night, he became very agitated, which frightened the . She called EMS, and he was subsequently brought into our facility for further evaluation and treatment. PHYSICAL EXAMINATION: VITAL SIGNS: On exam, his blood pressure was 160/120, his pulse rate was 98, respirations 18, temperature 98.9, and his room air O2 saturation was 99%. GENERAL: This gentleman is well developed, well nourished, but agitated. EAR, NOSE, AND THROAT: No outward signs of trauma. NECK: Supple. CARDIAC: Heart rhythm regular. No gallop or murmur noted. LUNGS: Clear without rales or wheezes. No respiratory distress. ABDOMEN: Flat, soft. No guarding or rebound. NEUROLOGIC: No focal deficits. Neurologically, though he is oriented to self only and as stated above, he appears agitated and is thrashing around the bed with soft constraints. LABORATORY DATA: White count 5700, hemoglobin is 12.5, hematocrit is 35.8 with an MCV of 91. Chemistries; sodium 139, potassium 4.2, chloride 105, bicarb 24, BUN 15, creatinine 1.34, and glucose 314. Troponin less than 0.01. IMAGING STUDIES: Head CT; no acute intracranial hemorrhage or mass effect. There are changes consistent with microvascular disease. No definite acute infarct. Chest x-ray, no acute lung process noted. ASSESSMENT: Acute confusional state. PLAN: Admit. Observe. The patient is being transferred to the [facility]. Job ID: [id number]
[2019-04-06 13:25] VITALS: BMI 31.9
[2019-04-06] MEDS: HumaLOG 300 UNITS/3 ML VIAL SC PRN ×2 (14:30→17:47)
[2019-04-07 05:04] LABS: #Eosinphils 0.2 thou/uL (0.0-0.7); #Lymphocytes 1.4 thou/uL (1.20-3.40); #Monocytes 0.8 thou/uL (0.11-0.59); #Neutrophils 6.4 thou/uL (1.40-6.50); %Basophils 0.2 % (0.0-1.0); %Lymphocytes 15.9 % (21.0-51.0); %Monocytes 8.6 % (0.0-10.0); %Neutrophils 73.3 % (42.0-75.0); Mean Corpuscular HGB CONC 32.4 g/dL (32.0-36.0); Mean Corpuscular Hemoglobin 30.5 pg (27.0-31.0); Mean Corpuscular Volume 94.1 fL (78.0-98.0); Mean Platelet Volume 7.9 fL (7.4-10.4); Platelet Count 205 thou/uL (130-400); RBC Distribution Width 13.5 % (11.5-14.5); Red Blood Cell (RBC) Count 4.27 mill/uL (4.70-6.10); White Blood Cell (WBC) Count 8.7 thou/uL (4.8-10.8)
[2019-04-07 05:21] LABS: ALT (SGPT) 33 U/L (8-55); AST (SGOT) 102 U/L (5-34); Albumin 3.6 g/dL (3.4-4.8); Alkaline Phosphatase 72 U/L (40-110); Anion Gap 17 mmol/L (10-20); BUN (Urea Nitrogen) 10 mg/dL (8.4-25.7); Bilirubin, Total 1.1 mg/dL (0.2-1.2); Calc. Creatinine Clearance 84 mL/min (70-130); Carbon Dioxide 21 mmol/L (23-31); Chloride 105 mmol/L (98-107); Estimated GFR-MDRD 70; Glucose 180 mg/dL (83-110); Protein, Total 6.6 g/dL (5.8-8.1); Sodium 139 mmol/L (136-145)
[2019-04-07] MEDS: Lactated Ringer's 1,000 ML IV SCH ×2 (05:49→14:12)
[2019-04-07] MEDS: HumaLOG 300 UNITS/3 ML VIAL SC PRN ×4 (06:38→22:05)
[2019-04-07] MEDS ORDERED: Non-Formulary Item 1 EACH (Metformin Hcl [Metformin Hcl] 1,000 MG) PO SCH (09:00)
[2019-04-07] MEDS: Enoxaparin Sodium 40 MG/0.4 ML SYRINGE SC SCH (09:39)
[2019-04-07] MEDS: Aspirin 81 mg Enteric Coated Tablet PO SCH (09:39)
[2019-04-07] MEDS: Multivitamin W/ Minerals 1 TAB PO SCH (09:39)
[2019-04-07] MEDS: Vit A,C & E/Lutein/Minerals Tablet PO SCH ×2 (09:39→22:53)
[2019-04-07] MEDS: Insulin Glargine 10 UNITS in Pre-Filled Syringe 1 EACH SC SCH (09:40)
[2019-04-07] MEDS: Stress 600 With Zinc 1 TAB PO SCH (09:42)
--- NOTE | 2019-04-07 12:44 | PDOC.HOSPP ---
- Subjective Encounter Date: 04/07/19 Subjective: Pt seen awake oriented to person only , follows command moves all limbs admitted with acute encephalopathy and placed in restraints , Clinically looks dehydrated - Objective Vital Signs & Weight: Vital Signs (12 hours) Temp Pulse Resp BP BP Pulse Ox 04/07/19 11:23 97.9 F 95 20 147/78 H 94 L 04/07/19 07:35 98 F 96 20 160/91 H 97 04/07/19 04:46 87 183/87 H 04/07/19 04:00 98.6 F 92 16 92 L 04/07/19 01:00 202/105 H 04/07/19 00:47 182/113 H Weight Weight 222 lb 8 oz I&O: 04/06/19 04/07/19 04/08/19 06:59 06:59 06:59 Intake Total 1100 Balance 1100 Result Diagrams: 04/07/19 04:37 04/07/19 04:37 Additional Labs: Accuchecks 04/07/19 04/07/19 04/06/19 10:32 06:11 20:36 POC Glucose 217 H 178 H 153 H 04/06/19 04/06/19 04/06/19 18:52 16:44 14:15 POC Glucose 184 H 189 H 237 H Hospitalist ROS - Review of Systems ROS unobtainable: due to mental status - Medication Medications: Active Medications Generic Name Dose Route Start Last Admin Trade Name Freq PRN Reason Stop Dose Admin Aspirin 81 mg 04/06/19 09:00 04/07/19 09:39 Ecotrin PO 81 mg DAILY ASHLIE Administration Enoxaparin Sodium 40 mg 04/06/19 09:00 04/07/19 09:39 Lovenox SC 40 mg 0900 ASHLIE Administration Lactated Ringer's 1,000 mls @ 125 mls/hr 04/06/19 08:27 04/07/19 05:49 Lactated Ringer's IV 1,000 mls .Q8H ASHLIE Administration Insulin Glargine 10 units/ 0.1 mls @ 0 mls/hr 04/06/19 09:00 04/07/19 09:40 Miscellaneous Medication SC 0.1 mls QAM ASHLIE Administration Insulin Human Lispro 0 units 04/06/19 08:27 04/07/19 11:19 Humalog SC 3 unit .MILD SLIDING SCALE PRN Administration Mild Correctional Scale Iron/Minerals/Multivitamins 1 tab 04/07/19 09:00 04/07/19 09:39 Theragran M PO 1 tab DAILY ASHLIE Administration Metoprolol Succinate 100 mg 04/07/19 09:00 04/07/19 09:39 Toprol Xl PO 100 mg DAILY ASHLIE Administration Multivitamins/Minerals 1 tab 04/07/19 09:00 04/07/19 09:39 Ocuvite With Lutein PO 1 tab BID ASHLIE Administration Multivitamins/Zinc 1 tab 04/07/19 09:00 04/07/19 09:42 Stress 600 With Zinc PO 1 tab DAILY ASHLIE Administration Verapamil HCl 120 mg 04/07/19 09:00 04/07/19 09:39 Calan Sr PO 120 mg DAILY ASHLIE Administration - Exam General Appearance: awake alert Eye: anicteric sclera ENT: normocephalic atraumatic Neck: supple Heart: no murmur Respiratory: no wheezes Gastrointestinal: soft Extremities: no cyanosis Skin: no lesions Neurological: cranial nerve grossly intact Musculoskeletal: normal tone Psychiatric: oriented to person Hosp A/P - Plan Acute encephalopathy Pt oriented to person only speaks incoherent CT brain neg for acute findings will get neurology evaluation and ordered MRI brain will get more information from family , No evidence of sepsis mildly looks dehydrated , Continue symptomatic management for agitation and restraints as needed for pt safety Diabetes mellitus, type II Continue monitoring blood sugars CAD (coronary artery disease) Denies chest pains Continue home meds Dyslipidemia Continue home meds Hypertension Bp uncontrolled will continue prn hydralazine and home meds DVT/GI Prophyalxis Plan Discused with nursing staff Pt was admitted under family medicine cervices yesterday and transferred to Hospitalist medicine
[2019-04-07] MEDS: Lorazepam 2 MG/ML VIAL SLOW IVP PRN ×2 (14:13→14:38)
[2019-04-07] MEDS ORDERED: Aspirin 325 mg Enteric Coated Tablet PO SCH (21:00)
[2019-04-07] MEDS ORDERED: Benzonatate 100 MG CAP PO PRN (21:16)
--- NOTE | 2019-04-07 21:17 | RAD ---
Chest AP view INDICATION: Rule out aspiration COMPARISON: April 06, 2019 FINDINGS: Lungs:The lungs are clear Cardiac silhouette:The cardiomediastinal silhouette appears within normal limits. Pulmonary vasculature:Normal Pleural spaces:No pleural effusion or pneumothorax is demonstrated. Upper abdomen:No abnormality seen. Osseous structures: No acute osseous abnormality. Additional findings:None. IMPRESSION: No acute cardiopulmonary abnormality.
[2019-04-07] MEDS: Famotidine 20 MG TAB PO SCH (22:53)
[2019-04-07] MEDS: Nortriptyline HCl 25 MG CAP PO SCH (22:53)
[2019-04-07] MEDS: Rosuvastatin 20 MG TAB PO SCH (22:53)
[2019-04-07] MEDS: Ubidecarenone 50 MG CAP PO SCH (22:53)
[2019-04-08] MEDS: Lactated Ringer's 1,000 ML IV SCH ×3 (00:23→21:07)
[2019-04-08] MEDS: Lorazepam 2 MG/ML VIAL SLOW IVP PRN (01:37)
[2019-04-08 04:20] LABS: AST (SGOT) 102 U/L (5-34); Calcium 9.4 mg/dL (7.8-10.44); Chloride 103 mmol/L (98-107); Potassium 3.9 mmol/L (3.5-5.1); Sodium 138 mmol/L (136-145)
[2019-04-08 04:32] LABS: Globulin 3.3 g/dL (2.4-3.5); Glucose 154 mg/dL (83-110); Protein, Total 7.3 g/dL (5.8-8.1)
[2019-04-08 04:33] LABS: Anion Gap 18 mmol/L (10-20); Band 4 % (5-11); Carbon Dioxide 21 mmol/L (23-31); Eosinophils 1 % (0-10); Hemoglobin 14.3 g/dL (14.0-18.0); Lymphocytes 3 % (21-51); MDiff Complete? YES; Mean Corpuscular HGB CONC 33.2 g/dL (32.0-36.0); Mean Corpuscular Hemoglobin 30.7 pg (27.0-31.0); Mean Corpuscular Volume 92.4 fL (78.0-98.0); Mean Platelet Volume 6.8 fL (7.4-10.4); Monocytes 2 % (0-10); Neutrophil 90 % (42-75); Platelet Count 221 thou/uL (130-400); Platelet Morphology Comment Appears Adequate; RBC Distribution Width 13.4 % (11.5-14.5); RBC Morphology Normal; Red Blood Cell (RBC) Count 4.67 mill/uL (4.70-6.10); White Blood Cell (WBC) Count 12.3 thou/uL (4.8-10.8)
[2019-04-08 04:35] LABS: Alkaline Phosphatase 78 U/L (40-110); Calc. Creatinine Clearance 82 mL/min (70-130); Estimated GFR-MDRD 68
[2019-04-08 04:36] LABS: BUN (Urea Nitrogen) 9 mg/dL (8.4-25.7)
[2019-04-08 04:38] LABS: ALT (SGPT) 37 U/L (8-55)
[2019-04-08] MEDS: HumaLOG 300 UNITS/3 ML VIAL SC PRN ×2 (06:36→17:43)
[2019-04-08] MEDS: Enoxaparin Sodium 40 MG/0.4 ML SYRINGE SC SCH (10:18)
[2019-04-08] MEDS: hydrALAZINE 20 MG/ML VIAL SLOW IVP PRN (10:21)
[2019-04-08] MEDS ORDERED: Acetaminophen 650 MG Suppository PR PRN (12:07)
[2019-04-08] MEDS ORDERED: hydrALAZINE 20 MG/ML VIAL SLOW IVP PRN (13:41)
--- NOTE | 2019-04-08 15:05 | CON ---
DATE OF TELEMEDICINE CONSULTATION: 04/08/2019 CHIEF COMPLAINT: Altered mental status. HISTORY OF PRESENT ILLNESS: The patient was unable to give us any medical history. Most of the history was obtained from the chart. I reviewed his chart and per ER report, the patient was brought in by his . The patient woke up to make coffee and at which time, he became combative towards his . He was confused. His blood glucose was in the 280s. He was last seen normal by midnight. The patient is unable to give any history. PREVIOUS MEDICAL HISTORY: Cardiac with coronary artery disease and status post stent placement in 2005, diabetes type 2, glaucoma, hyperlipidemia, high cholesterol, and hypertension. PAST SURGICAL HISTORY: Prostatectomy. SOCIAL HISTORY: No alcohol. No drug use. Former smoker, quit smoking more than 10 years ago. ALLERGIES: IODINE, PENICILLIN, SOAP, AND TETANUS. MEDICATIONS: At home, he takes: 1. Vitamin B. 2. Crestor. 3. Valsartan. 4. Pantoprazole. 5. Tramadol. 6. Verapamil. 7. Glipizide. 8. Metformin. 9. Niacin. 10. Nortriptyline. 11. Aspirin. REVIEW OF SYSTEMS: Unobtainable. LABORATORY DATA: White count 12.3, hemoglobin 14.3, hematocrit 43.1, and platelets count 221. Chemistry; sodium 138, potassium 3.9, chloride 103, bicarb 21, BUN 9 , creatinine 1.06, and glucose 154. Lipid profile pending. Liver panel is normal except for AST is 102. Ammonia is 26. His urinalysis was checked and seems negative. Urine tox screen is not available. He did have a CT of the head on the when he was admitted and CT does not show any acute hemorrhage. He does have microvascular ischemic changes. MRI is pending. PHYSICAL EXAMINATION: VITAL SIGNS: Temperature 101.3, pulse 107, blood pressure 156/92, O2 sats 93, and respiratory rate 20. CHEST: Clear vesicular breathing. CARDIOVASCULAR: S1 and S2 heard. No murmurs. ABDOMEN: Soft. NEUROLOGIC: Higher intellectual function. He tries to talk but his mouth is dry. He appears very confused. He cannot follow commands. On motor examination, he moves all extremities. He has increased tone in both upper and lower extremities. He seems to have mild tremor in the chin area. Cerebellar, sensory difficult to evaluate. IMPRESSION: The patient is a 79-year-old man with acute confusional state. He has some stiffness and he also has confusion and chin tremor, he cannot answer questions or follow any commands. It is unclear why he has this acute confusional state since there are no identifiable metabolic factors, but his white count is elevated. TREATMENT RECOMMENDATIONS: 1. Please obtain MRI of the brain. 2. He looks parkinsonian. He may have underlying Parkinson disease and with some other metabolic disturbance, and he went into a confusional state. I will go ahead and start him on some Seroquel along with levodopa to see if we can make a difference. If there is no other source of infection, he will probably need CSF studies as well. If he continues to have slightly elevated temperature and there is no evidence of abnormal urine or any other source, please obtain CSF studies by tomorrow. I will follow with you. ADDENDUM: Spoke to Manoj our telemedicine RN later this evening. He started to hallucinate by evening. Plan would be to control hallucinations either with Haldol or Geodon, and request MRI and CSF studies. Suspicion is high for encephalitis. Also consider requesting ID consult, I will talk to his tomorrow AM. Job ID: [id number] MTDD
--- NOTE | 2019-04-08 17:22 | PDOC.HOSPP ---
- Subjective Encounter Date: 04/08/19 Subjective: Pt seen at bed site oriented in person only mental status same as before moves all extradites but gets confused ,,evaluated by neurology and started Parkinsonism meds and seroquel for confusion ,Pt also had temp spike 101 which i think due to right arm phlebitis - Objective Vital Signs & Weight: Vital Signs (12 hours) Temp Pulse Resp BP BP Pulse Ox 04/08/19 15:56 99.3 F 84 18 156/95 H 89 L 04/08/19 11:59 101.3 F H 107 H 20 156/92 H 93 L 04/08/19 10:21 98 190/101 H 04/08/19 09:58 97 04/08/19 08:00 99.7 F H 98 22 H 190/101 H 92 L Weight Weight 222 lb 8 oz I&O: 04/07/19 04/08/19 04/09/19 06:59 06:59 06:59 Intake Total 1100 3746 Balance 1100 3746 Result Diagrams: 04/08/19 03:50 04/08/19 03:50 Additional Labs: Accuchecks 04/08/19 04/08/19 04/08/19 16:55 10:50 06:11 POC Glucose 192 H 176 H 169 H 04/07/19 20:22 POC Glucose 273 H Hospitalist ROS - Review of Systems ROS unobtainable: due to mental status - Medication Medications: Active Medications Generic Name Dose Route Start Last Admin Trade Name Freq PRN Reason Stop Dose Admin Aspirin 81 mg 04/06/19 09:00 04/07/19 09:39 Ecotrin PO 81 mg DAILY ASHLIE Administration Coenzyme Q10 200 mg 04/07/19 21:00 04/07/19 22:53 Coenzyme Q10 PO Not Given HS ASHLIE Enoxaparin Sodium 40 mg 04/06/19 09:00 04/08/19 10:18 Lovenox SC 40 mg 0900 ASHLIE Administration Famotidine 20 mg 04/07/19 21:00 04/07/19 22:53 Pepcid PO Not Given HS ASHLIE Hydralazine HCl 10 mg 04/07/19 16:54 04/08/19 10:21 Apresoline SLOW IVP 10 mg Q6H PRN Administration BP >170/>95 Lactated Ringer's 1,000 mls @ 125 mls/hr 04/06/19 08:27 04/08/19 10:15 Lactated Ringer's IV 1,000 mls .Q8H ASHLIE Administration Insulin Human Lispro 0 units 04/06/19 08:27 04/08/19 06:36 Humalog SC 2 unit .MILD SLIDING SCALE PRN Administration Mild Correctional Scale Insulin Human Lispro 0 units 04/06/19 08:27 04/07/19 22:05 Humalog SC 3 unit .BEDTIME SLIDING SC PRN Administration Bedtime Correctional Scale Iron/Minerals/Multivitamins 1 tab 04/07/19 09:00 04/07/19 09:39 Theragran M PO 1 tab DAILY ASHLIE Administration Lorazepam 0.5 mg 04/07/19 12:55 04/08/19 01:37 Ativan SLOW IVP 0.5 mg Q6H PRN Administration Anxiety/Agitation Metoprolol Succinate 100 mg 04/07/19 09:00 04/07/19 09:39 Toprol Xl PO 100 mg DAILY ASHLIE Administration Multivitamins/Minerals 1 tab 04/07/19 09:00 04/07/19 22:53 Ocuvite With Lutein PO Not Given BID ASHLIE Multivitamins/Zinc 1 tab 04/07/19 09:00 04/07/19 09:42 Stress 600 With Zinc PO 1 tab DAILY ASHLIE Administration Nortriptyline HCl 25 mg 04/07/19 21:00 04/07/19 22:53 Pamelor PO Not Given HS ASHLIE Rosuvastatin Calcium 20 mg 04/07/19 21:00 04/07/19 22:53 Crestor PO Not Given HS ASHLIE Verapamil HCl 120 mg 04/07/19 09:00 04/07/19 09:39 Calan Sr PO 120 mg DAILY ASHLIE Administration - Exam General - other findings: awake but confused oriented inpersononly mildly confused ENT: normocephalic atraumatic Neck: supple Heart: no murmur Respiratory: no wheezes Gastrointestinal: soft Extremities - other findings: phlebitis right arm Neurological: cranial nerve grossly intact Psychiatric: somnolent Hosp A/P - Plan Acute encephalopathy Pt oriented to person only speaks incoherent CT brain neg for acute findings ,No obvious change in condition of pt Pt still confused neurology evaluation appreciated and started parkinsonism meds , Discussed personally with neuro team and nursing staff and neuro recommended to hold MRI brain , Continue symptomatic management for agitation and restraints as needed for pt safety Fever spike 101 Most likley due to right arm phlebitis continue cold compress , In the presence of acute encephalaopthy will cover with antibiotics vancomycin If pt has persistent fever with get LP and MRI brain Diabetes mellitus, type II Continue monitoring blood sugars CAD (coronary artery disease) Denies chest pains Continue home meds Dyslipidemia Continue home meds Hypertension Bp uncontrolled will continue prn hydralazine and home meds DVT/GI Prophyalxis Plan Discused with nursing staff and 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
[2019-04-08] MEDS: Vit A,C & E/Lutein/Minerals Tablet PO SCH ×2 (17:26→21:19)
[2019-04-08] MEDS: Aspirin 81 mg Enteric Coated Tablet PO SCH (17:31)
[2019-04-08] MEDS: Carbidopa/Levodopa 25-100 mg Tablet PO SCH ×2 (17:31→21:18)
[2019-04-08] MEDS: Stress 600 With Zinc 1 TAB PO SCH (17:31)
[2019-04-08] MEDS: Multivitamin W/ Minerals 1 TAB PO SCH (17:32)
[2019-04-08] MEDS ORDERED: Sterile Water 10 ML VIAL FS PRN (17:52)
[2019-04-08] MEDS ORDERED: Ziprasidone 20 MG VIAL IM SCH (18:00)
[2019-04-08] MEDS ORDERED: Haloperidol Lactate 5 MG/ML VIAL IM PRN (20:00)
--- NOTE | 2019-04-08 20:33 | RAD ---
LUMBAR PUNCTURE: 04/08/19 HISTORY: Altered mental status. COMPARISON: None. FINDINGS: The patient was brought to the fluoroscopy suite in four point restraints. Sinker Puller radiograph of the marlyn mbar spine demonstrates moderate facet arthrosis. Patient was put in the supine position. The exam is limited due to extensive patient motion. 3 mL of lidocaine was instilled into the superficial and deep soft tissues. The L2-3 interspace was accessed using a 22 gauge spinal needle. Only approximately 5 mL of fluid was able to be removed due to patien t's extensive motion and movement and laying on their side during the end part of the exam for which the needle was removed for patient's safety. IMPRESSION: Technically successful fluoroscopic guided lumbar puncture with removal of 5 mL of CSF. The remainder of the CSF could not be removed due to patient's movement and thrashing. If more CSF is needed, a re peat examination with anesthesia is recommended. POS: HOME
[2019-04-08] MEDS: Vancomycin HCl 1 GM in Premix Bag 1 BAG IVPB SCH (20:56)
[2019-04-08] MEDS: Famotidine 20 MG TAB PO SCH (21:18)
[2019-04-08] MEDS: Rosuvastatin 20 MG TAB PO SCH (21:18)
[2019-04-08] MEDS: Ubidecarenone 50 MG CAP PO SCH (21:18)
[2019-04-08] MEDS: Nortriptyline HCl 25 MG CAP PO SCH (21:18)
[2019-04-08 21:21] LABS: CSF Source CSF; Clarity Clear (Clear); Tube # 1
[2019-04-09] MEDS: hydrALAZINE 20 MG/ML VIAL SLOW IVP PRN (07:29)
[2019-04-09] MEDS: Enoxaparin Sodium 40 MG/0.4 ML SYRINGE SC SCH (09:08)
[2019-04-09] MEDS: Carbidopa/Levodopa 25-100 mg Tablet PO SCH ×3 (09:08→20:49)
[2019-04-09] MEDS: Multivitamin W/ Minerals 1 TAB PO SCH (09:08)
[2019-04-09] MEDS: Vit A,C & E/Lutein/Minerals Tablet PO SCH ×2 (09:08→20:49)
[2019-04-09] MEDS: Aspirin 81 mg Enteric Coated Tablet PO SCH (09:08)
[2019-04-09] MEDS: Stress 600 With Zinc 1 TAB PO SCH (09:08)
[2019-04-09] MEDS: Vancomycin HCl 1 GM in Premix Bag 1 BAG IVPB SCH ×2 (10:46→17:30)
[2019-04-09] MEDS: traMADol HCl 50 MG TAB PO PRN ×2 (10:50→15:29)
[2019-04-09] MEDS ORDERED: Ziprasidone 20 MG VIAL IM SCH (11:00)
[2019-04-09] MEDS: Lorazepam 2 MG/ML VIAL SLOW IVP PRN (11:05)
[2019-04-09] MEDS: HumaLOG 300 UNITS/3 ML VIAL SC PRN (11:17)
[2019-04-09] MEDS: Lactated Ringer's 1,000 ML IV SCH ×3 (12:51→22:25)
--- NOTE | 2019-04-09 14:04 | PRG ---
DATE OF TELEMEDICINE SERVICE: 04/09/2019 CHIEF COMPLAINT: Altered mental status. HISTORY OF PRESENT ILLNESS: I spoke to his and another relative, who were in the room. The patient had been forgetful at least for the past 6 months. He was wanting to go into the kitchen and make coffee. He got upset with his . In the past year, the patient has been more short-tempered, easily upset, which is not typical for him, and he is also very argumentative, accusing of doing something she did not do. On Thursday, he became very agitated, so brought him here. and her relatives, one of the young ladies, were on the phone. They were trying to do a Skype call with me while I am talking to his and they all asked various questions and all their questions were answered. Their questions of why he cannot be on propofol to obtain an MRI as well. His current workup; his CSF studies are unremarkable other than mild elevation of protein. Cultures are negative so far. PHYSICAL EXAMINATION: VITAL SIGNS: Temperature 98.3, pulse 78, respiratory rate 22, O2 saturations 95 %, blood pressure 189/90. NEURO: He is not coherent. He is moving around in bed. He tries to vocalize. IMPRESSION: The patient is a 79-year-old man with what sounds like chronic dementia as an underlying factor, which has not been formally diagnosed and he is currently waiting for his MRI scan. Lumbar puncture did not show any specific findings. He does have mildly elevated white count, which raises suspicion for some sort of underlying infection. The primary care physician noted that the patient had phlebitis. He is currently on vancomycin. The patient continues to be encephalopathic. I have discussed the situation with his and the family members. TREATMENT RECOMMENDATIONS: 1. Please obtain Infectious Disease Team consult. 2. Please obtain MRI with help of Smitha Reyes. If he is not improving, we can certainly consider MRI under anesthesia, but I suspect the yield may be low. Based on his history, I expect to find some atrophy. I will follow up the patient again tomorrow. Job ID: [id number] MTDD
--- NOTE | 2019-04-09 14:46 | PDOC.HOSPP ---
- Subjective Encounter Date: 04/09/19 Encounter Time: 14:45 Subjective: Mr. White was seen today in follow-up of metabolic encephalopathy. His is at bedside, and tells me he is still confused. He is sleeping now, and was not able to perform the MRI, due to restlessness. - Objective Vital Signs & Weight: Vital Signs (12 hours) Temp Pulse Resp BP BP Pulse Ox 04/09/19 11:28 98.3 F 78 12 135/69 96 04/09/19 07:50 95 04/09/19 07:34 98.7 F 69 22 H 189/90 H 95 04/09/19 07:29 67 189/90 H 04/09/19 03:21 97.6 F 65 24 H 178/97 H 96 Weight Weight 222 lb 8 oz I&O: 04/08/19 04/09/19 04/10/19 06:59 06:59 05:59 Intake Total 3746 Balance 3746 Result Diagrams: 04/15/19 04:49 04/15/19 04:49 Additional Labs: Accuchecks 04/09/19 04/09/19 04/08/19 10:48 06:17 20:04 POC Glucose 217 H 183 H 198 H 04/08/19 16:55 POC Glucose 192 H Hospitalist ROS - Medication Medications: Active Medications Generic Name Dose Route Start Last Admin Trade Name Freq PRN Reason Stop Dose Admin Aspirin 81 mg 04/06/19 09:00 04/09/19 09:08 Ecotrin PO 81 mg DAILY ASHLIE Administration Carbidopa/Levodopa 1 tab 04/08/19 15:00 04/09/19 09:08 Sinemet 25-100 PO 1 tab TID ASHLIE Administration Coenzyme Q10 200 mg 04/07/19 21:00 04/08/19 21:18 Coenzyme Q10 PO Not Given HS ASHLIE Enoxaparin Sodium 40 mg 04/06/19 09:00 04/09/19 09:08 Lovenox SC 40 mg 0900 ASHLIE Administration Famotidine 20 mg 04/07/19 21:00 04/08/19 21:18 Pepcid PO Not Given HS ASHLIE Hydralazine HCl 10 mg 04/07/19 16:54 04/09/19 07:29 Apresoline SLOW IVP 10 mg Q6H PRN Administration BP >170/>95 Lactated Ringer's 1,000 mls @ 125 mls/hr 04/06/19 08:27 04/09/19 12:51 Lactated Ringer's IV 1,000 mls .Q8H ASHLIE Administration Vancomycin HCl 1 gm/ Device 200 mls @ 200 mls/hr 04/08/19 18:00 04/09/19 10: 46 IVPB 200 mls 0600,1800 ASHLIE Administration Insulin Human Lispro 0 units 04/06/19 08:27 04/09/19 11:17 Humalog SC 3 unit .MILD SLIDING SCALE PRN Administration Mild Correctional Scale Insulin Human Lispro 0 units 04/06/19 08:27 04/07/19 22:05 Humalog SC 3 unit .BEDTIME SLIDING SC PRN Administration Bedtime Correctional Scale Iron/Minerals/Multivitamins 1 tab 04/07/19 09:00 04/09/19 09:08 Theragran M PO 1 tab DAILY ASHLIE Administration Lorazepam 0.5 mg 04/07/19 12:55 04/08/19 01:37 Ativan SLOW IVP 0.5 mg Q6H PRN Administration Anxiety/Agitation Lorazepam 1 mg 04/09/19 09:59 04/09/19 11:05 Ativan SLOW IVP 1 mg Q4H PRN Administration Anxiety/Agitation Metoprolol Succinate 100 mg 04/07/19 09:00 04/09/19 09:08 Toprol Xl PO 100 mg DAILY ASHLIE Administration Multivitamins/Minerals 1 tab 04/07/19 09:00 04/09/19 09:08 Ocuvite With Lutein PO 1 tab BID ASHLIE Administration Multivitamins/Zinc 1 tab 04/07/19 09:00 04/09/19 09:08 Stress 600 With Zinc PO 1 tab DAILY ASHLIE Administration Nortriptyline HCl 25 mg 04/07/19 21:00 04/08/19 21:18 Pamelor PO Not Given HS ASHLIE Rosuvastatin Calcium 20 mg 04/07/19 21:00 04/08/19 21:18 Crestor PO Not Given HS ASHLIE Tramadol HCl 50 mg 04/09/19 10:00 04/09/19 10:50 Ultram PO 50 mg Q4H PRN Administration Pain Verapamil HCl 120 mg 04/07/19 09:00 04/09/19 09:08 Calan Sr PO 120 mg DAILY ASHLIE Administration - Exam Eye: PERRL, anicteric sclera Heart: RRR, no murmur, no gallops, no rubs, normal peripheral pulses Respiratory: CTAB, no wheezes, no rales, no ronchi, normal chest expansion, no tachypnea, normal percussion Gastrointestinal: soft, non-tender, non-distended, normal bowel sounds, no palpable masses Extremities: 2+ LE edema (+ edema in the left upper extremity) Hosp A/P (1) Acute encephalopathy Code(s): G93.40 - ENCEPHALOPATHY, UNSPECIFIED Status: Acute (2) CAD (coronary artery disease) Code(s): I25.10 - ATHSCL HEART DISEASE OF [place] CORONARY ARTERY W/O ANG PCTRS Status: Chronic (3) Diabetes mellitus, type II Status: Chronic (4) Hypertension Code(s): I10 - ESSENTIAL (PRIMARY) HYPERTENSION Status: Chronic - Plan * Metabolic encephalopathy- ? etiology- discussed with the patient's , and daughter who are at bedside. He had some difficulty with memory and odd behaviour over the past few months. His daughter noted that it looks like he " aged" tremendously over the past year. Then he began being combative, and difficulty to control about 2 days prior to admission. She also mentions that he was diagnosed with sleep apnea, but " never uses his CPAP". She doesnot know what his setting are. - . LP results were noted, and are essentially negative for acute bacterial meningitis. * Will check MRI under anesthesia, Check an ABG to rule out hypercapnea and may need to place on CPAP at night, and check a flu- swab, await ID recommendations * If he is still encephalopathic and can not eat in a day or so will need alternate means of nutrition * HTN- blood pressure is stable * DM-Blood glucose is stable
[2019-04-09] MEDS: Tramadol Hcl [Tramadol Hcl Er] 200 MG PO SCH ×2 (16:15→16:16)
--- NOTE | 2019-04-09 16:17 | ULT ---
LEFT LOWER EXTREMITY VENOUS DUPLEX EXAM: 04/09/19 HISTORY: Left leg swelling. Real time color Doppler evaluation of the left lower extremity was performed from groin to calf. This includes evaluation of the common femoral, superficial and profunda femoral, saphenous, popliteal an d posterior tibial veins. This shows thrombus in the more distal aspect of the posterior tibial veins with a patent popliteal vein and proximal veins. IMPRESSION: DVT within the calf involving the posterior tibial veins. Findings were conveyed to the patient's nurse by the technologist. POS: KELLY
--- NOTE | 2019-04-09 17:48 | ULT ---
LEFT LOWER EXTREMITY VENOUS DOPPLER: 04/09/19 HISTORY: Upper extremity edema. COMPARISON: None. FINDINGS: Real time martin scale, color Doppler and spectral analysis of the left upper extremity venous system i s performed. The internal jugular and subclavian veins as well as the axillary, brachial, basilic vei ns, radial and ulnar veins are interrogated. In the upper arm there is no flow or compressibility of the basilic vein. IMPRESSION: Thrombosis of the left basilic vein. Technologist relayed findings. POS: HOME
[2019-04-09 19:07] LABS: Base Excess (BEa) -0.2 mEq/L (-2.0 to +3.0); CO2 Tension 42.9 mmHg (35.0-45.0); Calcium, Ionized 1.23 mmol/L (1.12-1.30); Carboxyhemoglobin (COHb) 1.4 gm% (0.0-3.0); Hemoglobin (Hb) 13.6 g/dL (14.0-18.0); O2 Tension (PaO2) 66.9 mmHg (> 70.0); Potassium - ABG Lab 3.74 mmol/L (3.70-5.30); pH, Arterial 7.38 (7.35-7.45)
[2019-04-09 19:09] LABS: ALV-art Gradient 29.205 (0-20); Puncture Site L RADIAL
[2019-04-09] MEDS: Enoxaparin Sodium 100 MG/ML SYRINGE SC SCH (20:48)
[2019-04-09] MEDS: Ubidecarenone 50 MG CAP PO SCH (20:48)
[2019-04-09] MEDS: Famotidine 20 MG TAB PO SCH (20:49)
[2019-04-09] MEDS: Rosuvastatin 20 MG TAB PO SCH (20:49)
[2019-04-09] MEDS: Nortriptyline HCl 25 MG CAP PO SCH (20:50)
[2019-04-10] MEDS: Lactated Ringer's 1,000 ML IV SCH ×3 (01:35→16:23)
[2019-04-10] MEDS: Vancomycin HCl 1 GM in Premix Bag 1 BAG IVPB SCH ×3 (05:04→19:06)
[2019-04-10] MEDS: hydrALAZINE 20 MG/ML VIAL SLOW IVP PRN (05:05)
[2019-04-10 06:09] LABS: Vancomycin, Trough 10.6 ug/mL
[2019-04-10 08:08] LABS: #Basophils 0.1 thou/uL (0.0-0.2); #Eosinphils 0.4 thou/uL (0.0-0.7); #Lymphocytes 1.3 thou/uL (1.20-3.40); #Monocytes 0.9 thou/uL (0.11-0.59); #Neutrophils 5.8 thou/uL (1.40-6.50); %Basophils 0.8 % (0.0-1.0); %Eosinophils 4.3 % (0.0-10.0); %Lymphocytes 15.5 % (21.0-51.0); %Monocytes 10.2 % (0.0-10.0); %Neutrophils 69.1 % (42.0-75.0); Hemoglobin 13.8 g/dL (14.0-18.0); Mean Corpuscular HGB CONC 32.8 g/dL (32.0-36.0); Mean Corpuscular Hemoglobin 30.5 pg (27.0-31.0); Mean Corpuscular Volume 92.8 fL (78.0-98.0); Mean Platelet Volume 7.3 fL (7.4-10.4); Platelet Count 218 thou/uL (130-400); RBC Distribution Width 13.5 % (11.5-14.5); Red Blood Cell (RBC) Count 4.52 mill/uL (4.70-6.10); White Blood Cell (WBC) Count 8.5 thou/uL (4.8-10.8)
[2019-04-10 08:20] LABS: Anion Gap 18 mmol/L (10-20); BUN (Urea Nitrogen) 11 mg/dL (8.4-25.7); Calc. Creatinine Clearance 91 mL/min (70-130); Calcium 9.6 mg/dL (7.8-10.44); Carbon Dioxide 23 mmol/L (23-31); Chloride 103 mmol/L (98-107); Estimated GFR-MDRD 77; Glucose 239 mg/dL (83-110); Potassium 3.7 mmol/L (3.5-5.1); Sodium 140 mmol/L (136-145)
--- NOTE | 2019-04-10 09:08 | PDOC.HOSPP ---
- Subjective Encounter Date: 04/10/19 Encounter Time: 09:06 Subjective: Mr. White was seen today in follow-up of metabolic encephalopathy. He is confused this morning, but more alert. He is talking, but still pulling at things. - Objective Vital Signs & Weight: Vital Signs (12 hours) Temp Pulse Resp BP Pulse Ox 04/10/19 08:00 99 F 94 20 188/107 H 93 L 04/10/19 03:40 99.3 F 79 24 H 171/106 H 95 04/09/19 23:21 98.3 F 72 22 H 139/97 H 97 Weight Weight 222 lb 8 oz I&O: 04/09/19 04/10/19 04/11/19 07:59 06:59 06:59 Intake Total Balance Result Diagrams: 04/10/19 07:49 04/10/19 07:49 Additional Labs: Accuchecks 04/10/19 04/09/19 04/09/19 05:54 19:38 17:27 POC Glucose 174 H 187 H 168 H 04/09/19 10:48 POC Glucose 217 H Hospitalist ROS - Medication Medications: Active Medications Generic Name Dose Route Start Last Admin Trade Name Freq PRN Reason Stop Dose Admin Aspirin 81 mg 04/06/19 09:00 04/09/19 09:08 Ecotrin PO 81 mg DAILY ASHLIE Administration Carbidopa/Levodopa 1 tab 04/08/19 15:00 04/09/19 20:49 Sinemet 25-100 PO 1 tab TID ASHLIE Administration Coenzyme Q10 200 mg 04/07/19 21:00 04/09/19 20:48 Coenzyme Q10 PO 200 mg HS ASHLIE Administration Enoxaparin Sodium 100 mg 04/09/19 21:00 04/09/19 20:48 Lovenox SC 100 mg 0900,2100 ASHLIE Administration Famotidine 20 mg 04/07/19 21:00 04/09/19 20:49 Pepcid PO 20 mg HS ASHLIE Administration Hydralazine HCl 10 mg 04/07/19 16:54 04/10/19 05:05 Apresoline SLOW IVP 10 mg Q6H PRN Administration BP >170/>95 Lactated Ringer's 1,000 mls @ 125 mls/hr 04/06/19 08:27 04/10/19 05:09 Lactated Ringer's IV 1,000 mls .Q8H ASHLIE Administration Vancomycin HCl 1 gm/ Device 200 mls @ 200 mls/hr 04/08/19 18:00 04/10/19 06: 13 IVPB 200 mls 0600,1800 ASHLIE Administration Insulin Human Lispro 0 units 04/06/19 08:27 04/09/19 11:17 Humalog SC 3 unit .MILD SLIDING SCALE PRN Administration Mild Correctional Scale Insulin Human Lispro 0 units 04/06/19 08:27 04/07/19 22:05 Humalog SC 3 unit .BEDTIME SLIDING SC PRN Administration Bedtime Correctional Scale Iron/Minerals/Multivitamins 1 tab 04/07/19 09:00 04/09/19 09:08 Theragran M PO 1 tab DAILY ASHLIE Administration Lorazepam 0.5 mg 04/07/19 12:55 04/08/19 01:37 Ativan SLOW IVP 0.5 mg Q6H PRN Administration Anxiety/Agitation Lorazepam 1 mg 04/09/19 09:59 04/09/19 11:05 Ativan SLOW IVP 1 mg Q4H PRN Administration Anxiety/Agitation Metoprolol Succinate 100 mg 04/07/19 09:00 04/09/19 09:08 Toprol Xl PO 100 mg DAILY ASHLIE Administration Multivitamins/Minerals 1 tab 04/07/19 09:00 04/09/19 20:49 Ocuvite With Lutein PO 1 tab BID ASHLIE Administration Multivitamins/Zinc 1 tab 04/07/19 09:00 04/09/19 09:08 Stress 600 With Zinc PO 1 tab DAILY ASHLIE Administration Nortriptyline HCl 25 mg 04/07/19 21:00 04/09/19 20:50 Pamelor PO 25 mg HS ASHLIE Administration Quetiapine Fumarate 25 mg 04/09/19 21:00 04/09/19 20:48 Seroquel PO 25 mg HS ASHLIE Administration Rosuvastatin Calcium 20 mg 04/07/19 21:00 04/09/19 20:49 Crestor PO 20 mg HS ASHLIE Administration Tramadol HCl 50 mg 04/09/19 10:00 04/09/19 15:29 Ultram PO 50 mg Q4H PRN Administration Pain Verapamil HCl 120 mg 04/07/19 09:00 04/09/19 09:08 Calan Sr PO 120 mg DAILY ASHLIE Administration - Exam Eye: PERRL Heart: RRR, no murmur, no gallops, no rubs, normal peripheral pulses Respiratory: CTAB, no wheezes, no rales, no ronchi, normal chest expansion Gastrointestinal: soft, non-tender, non-distended, normal bowel sounds, no palpable masses, no hepatomegaly Extremities: no cyanosis, 1+ LE edema (Mild swelling in the right lower extremity) Psychiatric: not oriented (confused, and not following commands) Hosp A/P (1) Acute encephalopathy Code(s): G93.40 - ENCEPHALOPATHY, UNSPECIFIED Status: Acute (2) CAD (coronary artery disease) Code(s): I25.10 - ATHSCL HEART DISEASE OF [place] CORONARY ARTERY W/O ANG PCTRS Status: Chronic (3) Diabetes mellitus, type II Status: Chronic (4) Hypertension Code(s): I10 - ESSENTIAL (PRIMARY) HYPERTENSION Status: Chronic - Plan * Metabolic encephalopathy- MRI is planned for today. ABG did not demonstrate severe hypercapnea * DVT in right lower extremity and upper extremity- Lovenox has been started * Nutrition- he is still not in a mental state that he can tolerate p.o.- will place a DHT and start tube feeding * HTN- blood pressure is elevated-will add Clonidine scheduled * DM-Blood glucose is stable- continue SSI
[2019-04-10] MEDS: Aspirin 81 mg Enteric Coated Tablet PO SCH (09:33)
[2019-04-10] MEDS: cloNIDine 0.1 MG TAB PO SCH ×3 (09:33→20:39)
[2019-04-10] MEDS: Carbidopa/Levodopa 25-100 mg Tablet PO SCH ×3 (09:33→20:39)
[2019-04-10] MEDS: Enoxaparin Sodium 100 MG/ML SYRINGE SC SCH ×2 (09:33→20:38)
[2019-04-10] MEDS: Multivitamin W/ Minerals 1 TAB PO SCH (09:34)
[2019-04-10] MEDS: Vit A,C & E/Lutein/Minerals Tablet PO SCH ×2 (09:34→20:40)
[2019-04-10] MEDS: Stress 600 With Zinc 1 TAB PO SCH (09:34)
[2019-04-10] MEDS: Nortriptyline HCl 25 MG CAP PO SCH (20:38)
[2019-04-10] MEDS: Famotidine 20 MG TAB PO SCH (20:40)
[2019-04-10] MEDS: Ubidecarenone 50 MG CAP PO SCH (20:40)
[2019-04-10] MEDS: Rosuvastatin 20 MG TAB PO SCH (20:40)
--- NOTE | 2019-04-11 01:53 | CON ---
DATE OF CONSULTATION: 04/10/2019 REASON FOR CONSULTATION: Altered mental status. HISTORY OF PRESENT ILLNESS: A 79-year-old whom I had seen in the past in 2018 when he presented with history of coronary artery disease and stenting, type 2 diabetes, hyperlipidemia, hypertension, and I saw him because of fever. At that time, I felt that he had respiratory tract infection. In the current evaluation, patient was admitted because of mental state changes and brought to the emergency room on April 06, 4 days ago. Reportedly per , the patient woke up and became altered and combative with , disoriented. Initial evaluation by EMS showed blood sugar of 280. On arrival, he was unable to report any of the history. He did have some headaches reported. According to the , there were no respiratory symptoms, no abdominal pain or rectal or urinary symptoms. PAST MEDICAL HISTORY: Includes coronary artery disease, type 2 diabetes, hyperlipidemia, respiratory tract infection, glaucoma, hyperlipidemia, hypertension. PAST SURGICAL HISTORY: Includes prostatectomy for an unclear reason. SOCIAL HISTORY: He is retired. Former smoker, quit more than 10 years ago. ALLERGIES: IODINE, PENICILLIN. FAMILY HISTORY: Noncontributory. CURRENT MEDICATIONS: 1. Tylenol. 2. Ecotrin. 3. Tessalon. 4. Sinemet. 5. Catapres. 6. Coenzyme Q. 7. Lovenox. 8. Pepcid. 9. Glucagon. 10. Apresoline. 11. Humalog insulin. 12. Theragran. 13. Lorazepam. 14. Ativan. 15. Ocuvite. 16. Pamelor. 17. Seroquel. 18. Crestor. 19. Tramadol. 20. Vancomycin. 21. Verapamil. PHYSICAL EXAMINATION: VITAL SIGNS: T-max 101.3 two days ago, he has been afebrile since, BP 150/94, pulse 64, respirations 22, O2 saturation ranging from 93 to 96. SKIN: With a peripheral IV access. He does not have Leonardo catheter. GENERAL: He wakes up, opens his eyes and establishes eye contact. He asked me who I was. He could not tell me where he was. He could barely remember his name. He would not follow commands. He is restrained in bed at this time at this moment. HEENT: Ocular movements are conjugate. A little bit of conjunctival hyperemia. Pupils are pinpoint and symmetric. Oral cavity is dry. He is mouth breathing. NECK: Somewhat stiff to all directions. He does flex when asked. No tenderness in that area. No jugular vein distention. LUNGS: Symmetric air entry with diminished breath sounds at bases, but no crackles or wheezing. CARDIAC: S1, S2. Regular rate. No S3 or S4. Diminished heart sounds. ABDOMEN: Slightly distended, but nontender. No guarding. No organomegaly or ascites. Question of bladder distention. : No genital abnormalities. MUSCULOSKELETAL: No joint inflammatory activity. He has stiffness, which is diffuse. Plantar responses are flexor. Pulses 1+ in dorsalis pedis. He seems to be able to move all extremities. Muscle tone appears to be present in all 4 extremities. NEUROLOGIC: He is arousable, opens his eyes spontaneously, but has a hard time following commands and cannot give any personal account of his history. LABORATORY DATA: White cell count now is 8.5, hemoglobin 13.8, platelets 218 with 69% neutrophils. PH of 7.38, pCO2 of 42, pO2 of 66. Sodium 139, creatinine 1.03. Liver profile with AST of 102, but ALT, bilirubin, alkaline phosphatase within normal limits. Albumin is 3.6, globulin 3.0. Urinalysis fairly normal except for glycosuria and proteinuria. The CSF showed 712 rbc's and only 5 nucleated cells, 66 protein, and glucose 112. Influenza A and B were negative. IMAGING STUDIES: There is a vascular ultrasound from 04/09 with evidence of thrombosis in left basilic vein. There was a chest x-ray with no acute infiltrates, and a CT brain without any abnormalities of significance. ASSESSMENT: Coronary artery disease, type 2 diabetes, and acute change in mental state, which has persisted since for the past 3 days with cerebrospinal fluid findings that probably reflect contamination of blood rather than a primary inflammatory process within the cerebrospinal fluid. He has relatively small number of nucleated cells in the cerebrospinal fluid and I believe those are result of contamination of blood in the sample. At this point, the diagnosis is toxic metabolic encephalopathy. We need to rule out posterior fossa cerebrovascular accident with MRI and may need an EEG as well. I think the suspicion for encephalitis is not high at this point in time. Evidence of other sites of involvement by infectious process are not apparent at this time. He is at risk for complications such as aspiration pneumonia. He does not have evidence of an intraabdominal inflammatory process at this point in time. Urinary retention is somewhat of a concern and I would recommend a bedside bladder scan. Job ID: [id number]
[2019-04-11] MEDS: Lactated Ringer's 1,000 ML IV SCH ×2 (04:03→11:04)
[2019-04-11] MEDS: Vancomycin HCl 1 GM in Premix Bag 1 BAG IVPB SCH ×2 (05:54→18:36)
[2019-04-11] MEDS: Enoxaparin Sodium 100 MG/ML SYRINGE SC SCH ×2 (08:26→21:53)
[2019-04-11] MEDS: Aspirin 81 mg Enteric Coated Tablet PO SCH (10:17)
[2019-04-11] MEDS: Carbidopa/Levodopa 25-100 mg Tablet PO SCH ×3 (10:17→21:52)
[2019-04-11] MEDS: Multivitamin W/ Minerals 1 TAB PO SCH (10:18)
[2019-04-11] MEDS: cloNIDine 0.1 MG TAB PO SCH ×3 (10:18→21:52)
[2019-04-11] MEDS: Stress 600 With Zinc 1 TAB PO SCH (10:18)
[2019-04-11] MEDS: Vit A,C & E/Lutein/Minerals Tablet PO SCH ×2 (10:18→21:52)
[2019-04-11] MEDS ORDERED: Fentanyl 100 MCG/2 ML VIAL ONE (11:54)
[2019-04-11] MEDS ORDERED: Ketamine 50 MG/ML (10ML VIAL) ONE (12:11)
--- NOTE | 2019-04-11 13:22 | MRI ---
MRI BRAIN WITH AND WITHOUT IV CONTRAST: Date: 04/11/19 HISTORY: Encephalopathy. Altered mental status. FINDINGS: Correlation is made with CT scan of 04/06/19. No restricted diffusion is seen. No evidence of infarct, hemorrhage, mass, midline shift, or abnormal extra-axial fluid collections are noted. No abnormal postcontrast enhancement is seen. The ventricul ar size is appropriate and the basilar cisterns are patent. There are a few foci of T2 prolongation i n the periventricular white matter consistent with mild chronic small vessel ischemic disease. The vi sualized paranasal sinuses and mastoid air cells are well aerated. IMPRESSION: No significant abnormalities are identified. No evidence of acute intracranial process or mass. POS: OFF
--- NOTE | 2019-04-11 13:54 | RAD ---
Exam: KUB: HISTORY: Dobbhoff tube placement position evaluation A Dobbhoff tube is noted to somewhat coiled within the upper stomach. IMPRESSION: Dobbhoff tube very minimally coiled in the upper stomach.
[2019-04-11] MEDS ORDERED: PROPOFOL 200 MG/20 ML VIAL ONE (15:37)
[2019-04-11] MEDS ORDERED: ePHEDrine/0.9% NaCl/PF SYRINGE 50 mg/10 ml ONE (15:37)
[2019-04-11] MEDS ORDERED: Lidocaine 1% PF 5 ML VIAL ONE (15:37)
--- NOTE | 2019-04-11 18:28 | PDOC.HOSPP ---
- Subjective Encounter Date: 04/11/19 Encounter Time: 18:26 Subjective: Mr. White was seen today in follow-up of encephalopathy. He is still confused, but he seems a little more coherent to me than yesterday. - Objective Vital Signs & Weight: Vital Signs (12 hours) Temp Pulse Resp BP BP BP Pulse Ox 04/11/19 15:51 98.1 F 82 15 162/80 H 100 04/11/19 15:39 162/80 H 04/11/19 14:48 81 184/100 H 04/11/19 12:00 98.2 F 80 18 94 L 04/11/19 08:31 172/70 H 04/11/19 08:19 99.1 F 79 22 H 182/101 H 93 L 04/11/19 08:00 93 L Weight Admit Weight 222 lb 8 oz Weight 222 lb 8 oz I&O: 04/10/19 04/11/19 04/12/19 06:59 06:59 06:59 Intake Total 2750 2322 Balance 2750 2322 Result Diagrams: 04/10/19 07:49 04/10/19 07:49 Additional Labs: Accuchecks 04/11/19 04/11/19 04/11/19 16:56 10:44 06:10 POC Glucose 207 H 175 H 166 H 04/10/19 20:04 POC Glucose 175 H Hospitalist ROS - Medication Medications: Active Medications Generic Name Dose Route Start Last Admin Trade Name Freq PRN Reason Stop Dose Admin Aspirin 81 mg 04/06/19 09:00 04/11/19 10:17 Ecotrin PO Not Given DAILY ASHLIE Carbidopa/Levodopa 1 tab 04/08/19 15:00 04/11/19 18:00 Sinemet 25-100 PO Not Given TID ASHLIE Clonidine 0.1 mg 04/10/19 09:00 04/11/19 18:00 Catapres PO Not Given TID ASHLIE Coenzyme Q10 200 mg 04/07/19 21:00 04/10/19 20:40 Coenzyme Q10 PO 200 mg HS ASHLIE Administration Enoxaparin Sodium 100 mg 04/09/19 21:00 04/11/19 08:26 Lovenox SC 100 mg 0900,2100 ASHLIE Administration Famotidine 20 mg 04/07/19 21:00 04/10/19 20:40 Pepcid PO 20 mg HS ASHLIE Administration Hydralazine HCl 10 mg 04/07/19 16:54 04/10/19 05:05 Apresoline SLOW IVP 10 mg Q6H PRN Administration BP >170/>95 Hydralazine HCl 10 mg 04/08/19 13:41 04/11/19 14:48 Apresoline SLOW IVP 10 mg Q4H PRN Administration hypertension Lactated Ringer's 1,000 mls @ 125 mls/hr 04/06/19 08:27 04/11/19 11:04 Lactated Ringer's IV Not Given .Q8H ASHLIE Vancomycin HCl 1 gm/ Device 200 mls @ 200 mls/hr 04/08/19 18:00 04/11/19 05: 54 IVPB 200 mls 0600,1800 ASHLIE Administration Insulin Human Lispro 0 units 04/06/19 08:27 04/09/19 11:17 Humalog SC 3 unit .MILD SLIDING SCALE PRN Administration Mild Correctional Scale Insulin Human Lispro 0 units 04/06/19 08:27 04/07/19 22:05 Humalog SC 3 unit .BEDTIME SLIDING SC PRN Administration Bedtime Correctional Scale Iron/Minerals/Multivitamins 1 tab 04/07/19 09:00 04/11/19 10:18 Theragran M PO Not Given DAILY [facility] Lorazepam 0.5 mg 04/07/19 12:55 04/08/19 01:37 Ativan SLOW IVP 0.5 mg Q6H PRN Administration Anxiety/Agitation Lorazepam 1 mg 04/09/19 09:59 04/09/19 11:05 Ativan SLOW IVP 1 mg Q4H PRN Administration Anxiety/Agitation Metoprolol Succinate 100 mg 04/07/19 09:00 04/11/19 10:18 Toprol Xl PO Not Given DAILY [facility] Multivitamins/Minerals 1 tab 04/07/19 09:00 04/11/19 10:18 Ocuvite With Lutein PO Not Given BID [facility] Multivitamins/Zinc 1 tab 04/07/19 09:00 04/11/19 10:18 Stress 600 With Zinc PO Not Given DAILY [facility] Nortriptyline HCl 25 mg 04/07/19 21:00 04/10/19 20:38 Pamelor PO 25 mg HS ASHLIE Administration Quetiapine Fumarate 25 mg 04/09/19 21:00 04/10/19 20:39 Seroquel PO 25 mg HS ASHLIE Administration Rosuvastatin Calcium 20 mg 04/07/19 21:00 04/10/19 20:40 Crestor PO 20 mg HS ASHLIE Administration Tramadol HCl 50 mg 04/09/19 10:00 04/09/19 15:29 Ultram PO 50 mg Q4H PRN Administration Pain Verapamil HCl 120 mg 04/07/19 09:00 04/11/19 10:18 Calan Sr PO Not Given DAILY ASHLIE - Exam Eye: PERRL Heart: RRR, no murmur, no gallops, no rubs, normal peripheral pulses Respiratory: CTAB, no wheezes, no rales, no ronchi, normal chest expansion, no tachypnea, normal percussion Gastrointestinal: soft, non-tender, non-distended, normal bowel sounds, no palpable masses, no hepatomegaly Extremities: 1+ LE edema (in both the left upper and lower extremity, the left arm is improved) Neurological: no weakness Musculoskeletal: no muscle wasting Psychiatric: not oriented Hosp A/P (1) Acute encephalopathy Code(s): G93.40 - ENCEPHALOPATHY, UNSPECIFIED Status: Acute (2) CAD (coronary artery disease) Code(s): I25.10 - ATHSCL HEART DISEASE OF [place] CORONARY ARTERY W/O ANG PCTRS Status: Chronic (3) Diabetes mellitus, type II Status: Chronic (4) Hypertension Code(s): I10 - ESSENTIAL (PRIMARY) HYPERTENSION Status: Chronic - Plan * Metabolic encephalopathy- MRI was negative for any significant findings * An EEG is being done * DVT in right lower extremity and upper extremity- Continue Lovenox * Nutrition- will place a DHT and start tube feedings * HTN- blood pressure is elevated-will add Clonidine scheduled * DM-Blood glucose is stable- continue SSI
--- NOTE | 2019-04-11 20:53 | PRG ---
DATE OF TELEMEDICINE SERVICE: 04/11/2019 CHIEF COMPLAINT: Altered mental status. HISTORY OF PRESENT ILLNESS: I spoke to his in detail. She is still very concerned about all the events that have taken place. The patient has been seen by Infectious Disease team and their recommendation is to consider EEG. There is no source of infection as of now that has been identified. The patient has also completed MRI of the brain, which did not reveal much other than chronic white matter ischemic changes, which are mild in nature. No intracranial process has been identified. CSF studies so far have been very benign and unremarkable. PHYSICAL EXAMINATION: VITAL SIGNS: Temperature 99.4, pulse 82, blood pressure 162/80, O2 saturations 100%. GENERAL: The patient is in the room, not oriented. He is fighting with the nursing staff. NEUROLOGIC: Moves all 4 extremities. IMPRESSION AND RECOMMENDATIONS: The patient is a 79-year-old man with likely mild dementia and has become rather agitated right before hospitalization a few days ago. At this time, no identifiable cause has been found. Family is very concerned. The patient's granddaughter is a nurse at [employer] in [place]. I have discussed this with Dr. Weber as well before, if the MRI was unremarkable, he will benefit from transfer to an academic center, where they can do further extensive workup to even look at rare causes of altered mental status. I discussed this with the . My recommendation is for the patient to be transferred to [facility] in [place], where his granddaughter works, which is what the family desired. I also requested an EEG. Job ID: [id number] MTDD
[2019-04-11] MEDS: Famotidine 20 MG TAB PO SCH (21:52)
[2019-04-11] MEDS: Ubidecarenone 50 MG CAP PO SCH (21:52)
[2019-04-11] MEDS: Rosuvastatin 20 MG TAB PO SCH (21:52)
[2019-04-11] MEDS: Nortriptyline HCl 25 MG CAP PO SCH (21:53)
[2019-04-12] MEDS: Lactated Ringer's 1,000 ML IV SCH ×3 (03:11→23:31)
[2019-04-12] MEDS: Vancomycin HCl 1 GM in Premix Bag 1 BAG IVPB SCH ×2 (05:56→18:24)
[2019-04-12 06:25] LABS: Hemoglobin 12.8 g/dL (14.0-18.0); Platelet Count 221 thou/uL (130-400)
[2019-04-12 06:56] LABS: Vancomycin, Trough 13.8 ug/mL
[2019-04-12] MEDS: Enoxaparin Sodium 100 MG/ML SYRINGE SC SCH ×2 (09:49→23:30)
[2019-04-12] MEDS: Vit A,C & E/Lutein/Minerals Tablet PO SCH ×2 (09:49→23:23)
[2019-04-12] MEDS: cloNIDine 0.1 MG TAB PO SCH ×3 (09:50→23:21)
[2019-04-12] MEDS: Multivitamin W/ Minerals 1 TAB PO SCH (10:07)
[2019-04-12] MEDS: Carbidopa/Levodopa 25-100 mg Tablet PO SCH ×3 (10:07→23:21)
[2019-04-12] MEDS: Stress 600 With Zinc 1 TAB PO SCH (10:07)
[2019-04-12] MEDS: Aspirin 81 mg Enteric Coated Tablet PO SCH (10:09)
[2019-04-12] MEDS ORDERED: Aspirin Chewable 81 MG TAB PER TUBE SCH (10:15)
--- NOTE | 2019-04-12 12:00 | PDOC.HOSPP ---
- Subjective Encounter Date: 04/12/19 Encounter Time: 11:58 Subjective: Mr. White was seen today in follow-up of delirium. He is still confused. - Objective Vital Signs & Weight: Vital Signs (12 hours) Temp Pulse Resp BP BP Pulse Ox 04/12/19 09:50 140/79 04/12/19 08:00 99.4 F 94 21 H 137/102 H 93 L 04/12/19 04:00 96 04/12/19 03:06 99.5 F 87 22 H 152/82 H 96 Weight Admit Weight 222 lb 8 oz Weight 222 lb 8 oz I&O: 04/11/19 04/12/19 04/13/19 06:59 06:59 06:59 Intake Total 2750 3401 Balance 2750 3401 Result Diagrams: 04/12/19 06:03 04/12/19 06:03 Additional Labs: Accuchecks 04/12/19 04/12/19 04/11/19 10:51 05:46 20:01 POC Glucose 222 H 196 H 192 H 04/11/19 16:56 POC Glucose 207 H Hospitalist ROS - Medication Medications: Active Medications Generic Name Dose Route Start Last Admin Trade Name Freq PRN Reason Stop Dose Admin Carbidopa/Levodopa 1 tab 04/08/19 15:00 04/12/19 10:07 Sinemet 25-100 PO 1 tab TID ASHLIE Administration Clonidine 0.1 mg 04/10/19 09:00 04/12/19 09:50 Catapres PO 0.1 mg TID ASHLIE Administration Coenzyme Q10 200 mg 04/07/19 21:00 04/11/19 21:52 Coenzyme Q10 PO 200 mg HS ASHLIE Administration Enoxaparin Sodium 100 mg 04/09/19 21:00 04/12/19 09:49 Lovenox SC 100 mg 0900,2100 ASHLIE Administration Famotidine 20 mg 04/07/19 21:00 04/11/19 21:52 Pepcid PO 20 mg HS ASHLIE Administration Hydralazine HCl 10 mg 04/07/19 16:54 04/10/19 05:05 Apresoline SLOW IVP 10 mg Q6H PRN Administration BP >170/>95 Hydralazine HCl 10 mg 04/08/19 13:41 04/11/19 14:48 Apresoline SLOW IVP 10 mg Q4H PRN Administration hypertension Lactated Ringer's 1,000 mls @ 125 mls/hr 04/06/19 08:27 04/12/19 03:11 Lactated Ringer's IV 1,000 mls .Q8H ASHLIE Administration Vancomycin HCl 1 gm/ Device 200 mls @ 200 mls/hr 04/08/19 18:00 04/12/19 05: 56 IVPB 200 mls 0600,1800 ASHLIE Administration Insulin Human Lispro 0 units 04/06/19 08:27 04/09/19 11:17 Humalog SC 3 unit .MILD SLIDING SCALE PRN Administration Mild Correctional Scale Insulin Human Lispro 0 units 04/06/19 08:27 04/07/19 22:05 Humalog SC 3 unit .BEDTIME SLIDING SC PRN Administration Bedtime Correctional Scale Iron/Minerals/Multivitamins 1 tab 04/07/19 09:00 04/12/19 10:07 Theragran M PO 1 tab DAILY ASHLIE Administration Lorazepam 0.5 mg 04/07/19 12:55 04/08/19 01:37 Ativan SLOW IVP 0.5 mg Q6H PRN Administration Anxiety/Agitation Lorazepam 1 mg 04/09/19 09:59 04/09/19 11:05 Ativan SLOW IVP 1 mg Q4H PRN Administration Anxiety/Agitation Metoprolol Succinate 100 mg 04/07/19 09:00 04/12/19 09:12 Toprol Xl PO Not Given DAILY ASHLIE Multivitamins/Minerals 1 tab 04/07/19 09:00 04/12/19 09:49 Ocuvite With Lutein PO 1 tab BID ASHLIE Administration Multivitamins/Zinc 1 tab 04/07/19 09:00 04/12/19 10:07 Stress 600 With Zinc PO 1 tab DAILY ASHLIE Administration Nortriptyline HCl 25 mg 04/07/19 21:00 04/11/19 21:53 Pamelor PO 25 mg HS ASHLIE Administration Quetiapine Fumarate 25 mg 04/09/19 21:00 04/11/19 21:53 Seroquel PO 25 mg HS ASHLIE Administration Rosuvastatin Calcium 20 mg 04/07/19 21:00 04/11/19 21:52 Crestor PO 20 mg HS ASHLIE Administration Tramadol HCl 50 mg 04/09/19 10:00 04/09/19 15:29 Ultram PO 50 mg Q4H PRN Administration Pain Verapamil HCl 120 mg 04/07/19 09:00 04/12/19 09:12 Calan Sr PO Not Given DAILY ASHLIE - Exam Eye: PERRL, anicteric sclera Heart: RRR, no murmur, no gallops, no rubs, normal peripheral pulses Respiratory: CTAB, no wheezes, no rales, no ronchi, normal chest expansion, no tachypnea, normal percussion Gastrointestinal: soft, non-tender, normal bowel sounds, no palpable masses Extremities: 1+ LE edema (edema in the left lower extremity) Hosp A/P (1) Acute encephalopathy Code(s): G93.40 - ENCEPHALOPATHY, UNSPECIFIED Status: Acute (2) CAD (coronary artery disease) Code(s): I25.10 - ATHSCL HEART DISEASE OF [place] CORONARY ARTERY W/O ANG PCTRS Status: Chronic (3) Diabetes mellitus, type II Status: Chronic (4) Hypertension Code(s): I10 - ESSENTIAL (PRIMARY) HYPERTENSION Status: Chronic - Plan * Metabolic encephalopathy- MRI was negative for any significant findings * An EEG - was negative for seizure activity * DVT in right lower extremity and upper extremity- Continue Lovenox * Nutrition- he is currently receiving DHT feeding * HTN- blood pressure is elevated-will add Clonidine scheduled * DM-Blood glucose is stable- continue SSI
[2019-04-12] MEDS: HumaLOG 300 UNITS/3 ML VIAL SC PRN ×2 (12:47→18:24)
[2019-04-12] MEDS: Verapamil 80 MG TAB PER TUBE SCH ×2 (15:54→23:22)
--- NOTE | 2019-04-12 20:39 | RAD ---
EXAM: Single view of the abdomen HISTORY: Dobbhoff tube placement COMPARISON: 04/11/2019 FINDINGS: Single view of the abdomen shows a nonspecific, nonobstructive bowel gas pattern. A Dobbhof f tube has been exchanged. The Dobbhoff tube courses down the right mainstem bronchus into the right lower lobe of the lungs. No suspicious calcifications are seen. The bones are unremarkable. IMPRESSION: Malpositioned Dobbhoff tube. The ordering clinician was notified by the technologist who took this radiograph of the aberrant placement.
[2019-04-12] MEDS: Lorazepam 2 MG/ML VIAL SLOW IVP PRN (21:53)
[2019-04-12] MEDS: Rosuvastatin 20 MG TAB PO SCH (23:22)
[2019-04-12] MEDS: Famotidine 20 MG TAB PO SCH (23:22)
[2019-04-12] MEDS: Ubidecarenone 50 MG CAP PO SCH (23:22)
[2019-04-12] MEDS: Nortriptyline HCl 25 MG CAP PO SCH (23:22)
[2019-04-13] MEDS: Lorazepam 2 MG/ML VIAL SLOW IVP PRN ×2 (02:43→23:28)
[2019-04-13] MEDS: Labetalol HCl 100 MG/20 ML VIAL SLOW IVP PRN ×2 (04:18→21:05)
[2019-04-13] MEDS: Vancomycin HCl 1 GM in Premix Bag 1 BAG IVPB SCH ×2 (05:13→18:21)
[2019-04-13] MEDS: Enoxaparin Sodium 100 MG/ML SYRINGE SC SCH ×2 (09:33→20:55)
--- NOTE | 2019-04-13 10:36 | PDOC.HOSPP ---
- Subjective Encounter Date: 04/13/19 Encounter Time: 10:37 Subjective: Mr. White was seen today in follow-up of metabolic encephalopathy. He has not had any significant change. - Objective Vital Signs & Weight: Vital Signs (12 hours) Temp Pulse Resp BP BP BP Pulse Ox 04/13/19 08:00 98.9 F 100 32 H 180/70 H 92 L 04/13/19 04:57 81 162/92 H 04/13/19 04:18 111 H 192/100 H 04/13/19 04:10 192/100 H 04/13/19 03:48 99.9 F H 102 H 24 H 96 04/13/19 00:23 162/98 H 04/12/19 23:52 99.8 F H 119 H 24 H 208/99 H 97 04/12/19 23:21 156/60 H Weight Admit Weight 222 lb 8 oz Weight 222 lb 8 oz I&O: 04/12/19 04/13/19 04/14/19 06:59 06:59 06:59 Intake Total 3401 3157 Balance 3401 3157 Result Diagrams: 04/12/19 06:03 04/12/19 06:03 Additional Labs: Accuchecks 04/13/19 04/12/19 04/12/19 06:24 21:30 16:31 POC Glucose 226 H 196 H 191 H 04/12/19 10:51 POC Glucose 222 H Hospitalist ROS - Medication Medications: Active Medications Generic Name Dose Route Start Last Admin Trade Name Freq PRN Reason Stop Dose Admin Carbidopa/Levodopa 1 tab 04/08/19 15:00 04/12/19 23:21 Sinemet 25-100 PO Not Given TID ASHLIE Clonidine 0.1 mg 04/10/19 09:00 04/12/19 23:21 Catapres PO Not Given TID ASHLIE Coenzyme Q10 200 mg 04/07/19 21:00 04/12/19 23:22 Coenzyme Q10 PO Not Given HS ASHLIE Enoxaparin Sodium 100 mg 04/09/19 21:00 04/13/19 09:33 Lovenox SC 100 mg 0900,2100 ASHLIE Administration Famotidine 20 mg 04/07/19 21:00 04/12/19 23:22 Pepcid PO Not Given HS ASHLIE Hydralazine HCl 10 mg 04/08/19 13:41 04/11/19 14:48 Apresoline SLOW IVP 10 mg Q4H PRN Administration hypertension Lactated Ringer's 1,000 mls @ 125 mls/hr 04/06/19 08:27 04/12/19 23:31 Lactated Ringer's IV 1,000 mls .Q8H ASHLIE Administration Vancomycin HCl 1 gm/ Device 200 mls @ 200 mls/hr 04/08/19 18:00 04/13/19 05: 13 IVPB 200 mls 0600,1800 ASHLIE Administration Insulin Human Lispro 0 units 04/06/19 08:27 04/12/19 18:24 Humalog SC 2 unit .MILD SLIDING SCALE PRN Administration Mild Correctional Scale Insulin Human Lispro 0 units 04/06/19 08:27 04/07/19 22:05 Humalog SC 3 unit .BEDTIME SLIDING SC PRN Administration Bedtime Correctional Scale Iron/Minerals/Multivitamins 1 tab 04/07/19 09:00 04/12/19 10:07 Theragran M PO 1 tab DAILY ASHLIE Administration Labetalol HCl 20 mg 04/13/19 04:12 04/13/19 04:18 Normodyne SLOW IVP 20 mg Q4H PRN Administration SBP Greater Than 170 Lorazepam 1 mg 04/09/19 09:59 04/12/19 21:53 Ativan SLOW IVP 1 mg Q4H PRN Administration Anxiety/Agitation Multivitamins/Minerals 1 tab 04/07/19 09:00 04/12/19 23:23 Ocuvite With Lutein PO Not Given BID ASHLIE Multivitamins/Zinc 1 tab 04/07/19 09:00 04/12/19 10:07 Stress 600 With Zinc PO 1 tab DAILY ASHLIE Administration Nortriptyline HCl 25 mg 04/07/19 21:00 04/12/19 23:22 Pamelor PO Not Given HS ASHLIE Quetiapine Fumarate 25 mg 04/09/19 21:00 04/12/19 23:22 Seroquel PO Not Given HS ASHLIE Rosuvastatin Calcium 20 mg 04/07/19 21:00 04/12/19 23:22 Crestor PO Not Given HS ASHLIE Tramadol HCl 50 mg 04/09/19 10:00 04/09/19 15:29 Ultram PO 50 mg Q4H PRN Administration Pain Verapamil HCl 80 mg 04/12/19 15:00 04/12/19 23:22 Calan PER TUBE Not Given TID ASHLIE - Exam Eye: PERRL Heart: RRR, no murmur, no gallops, no rubs, normal peripheral pulses Respiratory: CTAB, no wheezes, no rales, no ronchi, normal chest expansion Gastrointestinal: soft, non-tender, non-distended, normal bowel sounds, no palpable masses Extremities: no cyanosis, 1+ LE edema (+ edema in the left upper and lower extremities, improved) Hosp A/P (1) Acute encephalopathy Code(s): G93.40 - ENCEPHALOPATHY, UNSPECIFIED Status: Acute (2) CAD (coronary artery disease) Code(s): I25.10 - ATHSCL HEART DISEASE OF [place] CORONARY ARTERY W/O ANG PCTRS Status: Chronic (3) Diabetes mellitus, type II Status: Chronic (4) Hypertension Code(s): I10 - ESSENTIAL (PRIMARY) HYPERTENSION Status: Chronic - Plan * Metabolic encephalopathy-? etiology * Awaiting transfer to [facility] in [place] * DVT in right lower extremity and upper extremity- Continue Lovenox * Nutrition- he pulled out the DHT- will need to replace it- PPN in the interim * HTN- blood pressure is elevated-will add a catapres patch * DM-Blood glucose is stable- continue SSI
[2019-04-13] MEDS ORDERED: cloNIDine 0.2mg/24 Hour PATCH TD SCH (10:40)
[2019-04-13] MEDS ORDERED: D5W-AA 4.25% with LYTES 1,000 ML BAG IV SCH (10:45)
[2019-04-13 11:14] LABS: #Eosinphils 0.2 thou/uL (0.0-0.7); #Lymphocytes 1.6 thou/uL (1.20-3.40); #Monocytes 0.8 thou/uL (0.11-0.59); #Neutrophils 6.1 thou/uL (1.40-6.50); %Basophils 0.4 % (0.0-1.0); %Eosinophils 1.8 % (0.0-10.0); %Lymphocytes 18.8 % (21.0-51.0); %Monocytes 9.6 % (0.0-10.0); %Neutrophils 69.4 % (42.0-75.0); Hemoglobin 13.5 g/dL (14.0-18.0); Mean Corpuscular Hemoglobin 30.4 pg (27.0-31.0); Mean Corpuscular Volume 92.2 fL (78.0-98.0); Platelet Count 244 thou/uL (130-400); RBC Distribution Width 13.2 % (11.5-14.5); Red Blood Cell (RBC) Count 4.46 mill/uL (4.70-6.10); White Blood Cell (WBC) Count 8.7 thou/uL (4.8-10.8)
[2019-04-13 11:29] LABS: Anion Gap 18 mmol/L (10-20); BUN (Urea Nitrogen) 10 mg/dL (8.4-25.7); Calc. Creatinine Clearance 89 mL/min (70-130); Calcium 9.3 mg/dL (7.8-10.44); Carbon Dioxide 25 mmol/L (23-31); Chloride 101 mmol/L (98-107); Estimated GFR-MDRD 74; Glucose 241 mg/dL (83-110); Potassium 3.7 mmol/L (3.5-5.1); Sodium 140 mmol/L (136-145)
[2019-04-13] MEDS: Lactated Ringer's 1,000 ML IV SCH ×2 (11:59→17:46)
[2019-04-13] MEDS: HumaLOG 300 UNITS/3 ML VIAL SC PRN ×3 (12:01→21:03)
[2019-04-13] MEDS: Vit A,C & E/Lutein/Minerals Tablet PO SCH ×2 (15:12→20:58)
[2019-04-13] MEDS: Aspirin Chewable 81 MG TAB PER TUBE SCH (15:12)
[2019-04-13] MEDS: Verapamil 80 MG TAB PER TUBE SCH ×3 (15:13→20:57)
[2019-04-13] MEDS: cloNIDine 0.1 MG TAB PO SCH ×3 (15:13→20:57)
[2019-04-13] MEDS: Carbidopa/Levodopa 25-100 mg Tablet PO SCH ×3 (15:13→20:57)
[2019-04-13] MEDS: Metoprolol Tartrate 50 MG TAB PO SCH ×2 (15:13→20:57)
[2019-04-13] MEDS: D5W-AA 4.25% with LYTES 1,000 ML IV SCH (15:19)
[2019-04-13] MEDS: Stress 600 With Zinc 1 TAB PO SCH (15:19)
[2019-04-13] MEDS: Multivitamin W/ Minerals 1 TAB PO SCH (15:19)
[2019-04-13] MEDS: Nortriptyline HCl 25 MG CAP PO SCH (20:57)
[2019-04-13] MEDS: Rosuvastatin 20 MG TAB PO SCH (20:57)
[2019-04-13] MEDS: Famotidine 20 MG TAB PO SCH (20:57)
[2019-04-13] MEDS: Ubidecarenone 50 MG CAP PO SCH (20:57)
[2019-04-14] MEDS: Lactated Ringer's 1,000 ML IV SCH ×2 (01:09→15:44)
[2019-04-14] MEDS: Labetalol HCl 100 MG/20 ML VIAL SLOW IVP PRN (01:30)
[2019-04-14] MEDS: Vancomycin HCl 1 GM in Premix Bag 1 BAG IVPB SCH ×2 (05:18→17:20)
[2019-04-14] MEDS: HumaLOG 300 UNITS/3 ML VIAL SC PRN ×3 (05:41→22:09)
[2019-04-14] MEDS: Enoxaparin Sodium 100 MG/ML SYRINGE SC SCH ×2 (10:56→20:40)
[2019-04-14] MEDS: Aspirin Chewable 81 MG TAB PER TUBE SCH (10:59)
[2019-04-14] MEDS: Carbidopa/Levodopa 25-100 mg Tablet PO SCH ×3 (10:59→20:41)
[2019-04-14] MEDS: Verapamil 80 MG TAB PER TUBE SCH ×3 (11:00→20:42)
[2019-04-14] MEDS: Multivitamin W/ Minerals 1 TAB PO SCH (11:00)
[2019-04-14] MEDS: Vit A,C & E/Lutein/Minerals Tablet PO SCH ×2 (11:00→20:43)
[2019-04-14] MEDS: Stress 600 With Zinc 1 TAB PO SCH (11:00)
[2019-04-14] MEDS: Metoprolol Tartrate 50 MG TAB PO SCH ×2 (11:00→20:41)
[2019-04-14] MEDS: cloNIDine 0.1 MG TAB PO SCH ×3 (11:01→20:41)
--- NOTE | 2019-04-14 13:53 | PDOC.HOSPP ---
- Subjective Encounter Date: 04/14/19 Encounter Time: 13:50 Subjective: Mr. White was seen today in follow-up of metabolic encephalopathy. He has not had any significant improvement. He continues with confusion. - Objective Vital Signs & Weight: Vital Signs (12 hours) Temp Pulse Resp BP Pulse Ox 04/14/19 12:00 98.8 F 102 H 32 H 91 L 04/14/19 08:00 99.1 F 98 32 H 91 L 04/14/19 05:19 168/104 H 04/14/19 04:00 99.7 F H 84 24 H 198/101 H 92 L Weight Admit Weight 222 lb 8 oz Weight 222 lb 8 oz I&O: 04/13/19 04/14/19 04/15/19 06:59 06:59 06:59 Intake Total 3157 550 Balance 3157 550 Result Diagrams: 04/13/19 11:05 04/13/19 11:05 Additional Labs: Accuchecks 04/14/19 04/14/19 04/13/19 10:53 05:42 20:16 POC Glucose 276 H 249 H 255 H 04/13/19 16:14 POC Glucose 266 H Hospitalist ROS - Medication Medications: Active Medications Generic Name Dose Route Start Last Admin Trade Name Freq PRN Reason Stop Dose Admin Aspirin 81 mg 04/13/19 09:00 04/14/19 10:59 Aspirin Chewable PER TUBE Not Given DAILY ASHLIE Carbidopa/Levodopa 1 tab 04/08/19 15:00 04/14/19 10:59 Sinemet 25-100 PO Not Given TID ASHLIE Clonidine 0.1 mg 04/10/19 09:00 04/14/19 11:01 Catapres PO Not Given TID ASHLIE Clonidine 0.2 mg 04/13/19 10:40 04/13/19 15:20 Fxeivsum-Vss-4 TD 0.2 mg Q7DAYS ASHLIE Administration Coenzyme Q10 200 mg 04/07/19 21:00 04/13/19 20:57 Coenzyme Q10 PO Not Given HS ASHLIE Enoxaparin Sodium 100 mg 04/09/19 21:00 04/14/19 10:56 Lovenox SC 100 mg 0900,2100 ASHLIE Administration Famotidine 20 mg 04/07/19 21:00 04/13/19 20:57 Pepcid PO Not Given HS SAHLIE Hydralazine HCl 10 mg 04/08/19 13:41 04/11/19 14:48 Apresoline SLOW IVP 10 mg Q4H PRN Administration hypertension Lactated Ringer's 1,000 mls @ 125 mls/hr 04/06/19 08:27 04/14/19 01:09 Lactated Ringer's IV Not Given .Q8H ASHLIE Vancomycin HCl 1 gm/ Device 200 mls @ 200 mls/hr 04/08/19 18:00 04/14/19 05: 18 IVPB 200 mls 0600,1800 ASHLIE Administration Amino Acids/Electrolytes/Dextrose 1,000 mls @ 50 mls/hr 04/13/19 11:00 15:19 Clinimix E 4.25/5 IV 1,000 mls .Q20H ASHLIE Administration Insulin Human Lispro 0 units 04/06/19 08:27 04/14/19 05:41 Humalog SC 3 unit .MILD SLIDING SCALE PRN Administration Mild Correctional Scale Insulin Human Lispro 0 units 04/06/19 08:27 04/13/19 21:03 Humalog SC 3 unit .BEDTIME SLIDING SC PRN Administration Bedtime Correctional Scale Iron/Minerals/Multivitamins 1 tab 04/07/19 09:00 04/14/19 11:00 Theragran M PO Not Given DAILY [facility] Labetalol HCl 20 mg 04/13/19 04:12 04/14/19 01:30 Normodyne SLOW IVP 20 mg Q4H PRN Administration SBP Greater Than 170 Lorazepam 1 mg 04/09/19 09:59 04/13/19 23:28 Ativan SLOW IVP 1 mg Q4H PRN Administration Anxiety/Agitation Metoprolol Tartrate 50 mg 04/13/19 09:00 04/14/19 11:00 Lopressor PO Not Given BID [facility] Multivitamins/Minerals 1 tab 04/07/19 09:00 04/14/19 11:00 Ocuvite With Lutein PO Not Given BID [facility] Multivitamins/Zinc 1 tab 04/07/19 09:00 04/14/19 11:00 Stress 600 With Zinc PO Not Given DAILY [facility] Nortriptyline HCl 25 mg 04/07/19 21:00 04/13/19 20:57 Pamelor PO Not Given HS [facility] Quetiapine Fumarate 25 mg 04/09/19 21:00 04/13/19 20:57 Seroquel PO Not Given HS ASHLIE Rosuvastatin Calcium 20 mg 04/07/19 21:00 04/13/19 20:57 Crestor PO Not Given HS ASHLIE Tramadol HCl 50 mg 04/09/19 10:00 04/09/19 15:29 Ultram PO 50 mg Q4H PRN Administration Pain Verapamil HCl 80 mg 04/12/19 15:00 04/14/19 11:00 Calan PER TUBE Not Given TID ASHLIE - Exam Eye: PERRL, anicteric sclera Heart: RRR, no murmur, no gallops, no rubs, normal peripheral pulses Respiratory: CTAB, no wheezes, no rales, no ronchi, normal chest expansion, no tachypnea Gastrointestinal: soft, non-tender, non-distended, normal bowel sounds, no palpable masses, no hepatomegaly Extremities: no cyanosis, 1+ LE edema Hosp A/P (1) Acute encephalopathy Code(s): G93.40 - ENCEPHALOPATHY, UNSPECIFIED Status: Acute (2) CAD (coronary artery disease) Code(s): I25.10 - ATHSCL HEART DISEASE OF [place] CORONARY ARTERY W/O ANG PCTRS Status: Chronic (3) Diabetes mellitus, type II Status: Chronic (4) Hypertension Code(s): I10 - ESSENTIAL (PRIMARY) HYPERTENSION Status: Chronic - Plan * Metabolic encephalopathy-? etiology * DVT in right lower extremity and upper extremity- Continue Lovenox * Nutrition- he was evaluated by Speech, and will give a trial of a diet with risks, and continue PPN supplement * HTN- blood pressure is elevated-will add a Nitropaste patch to help with his blood pressure * DM-Blood glucose is stable- continue SSI
[2019-04-14] MEDS: D5W-AA 4.25% with LYTES 1,000 ML IV SCH (15:54)
[2019-04-14] MEDS: Nitroglycerin 2% Ointment 1 INCH/1 GM Packet TOP SCH (20:39)
[2019-04-14] MEDS: Nortriptyline HCl 25 MG CAP PO SCH (20:41)
[2019-04-14] MEDS: Famotidine 20 MG TAB PO SCH (20:41)
[2019-04-14] MEDS: Rosuvastatin 20 MG TAB PO SCH (20:42)
[2019-04-14] MEDS: Ubidecarenone 50 MG CAP PO SCH (20:42)
[2019-04-15] MEDS: Lorazepam 2 MG/ML VIAL SLOW IVP PRN (04:52)
[2019-04-15 05:01] LABS: #Basophils 0.1 thou/uL (0.0-0.2); #Eosinphils 0.2 thou/uL (0.0-0.7); #Lymphocytes 1.8 thou/uL (1.20-3.40); #Monocytes 1.4 thou/uL (0.11-0.59); #Neutrophils 8.4 thou/uL (1.40-6.50); %Basophils 0.5 % (0.0-1.0); %Eosinophils 1.3 % (0.0-10.0); %Lymphocytes 14.9 % (21.0-51.0); %Neutrophils 71.3 % (42.0-75.0); Hemoglobin 13.3 g/dL (14.0-18.0); Mean Corpuscular HGB CONC 31.8 g/dL (32.0-36.0); Mean Corpuscular Hemoglobin 29.2 pg (27.0-31.0); Mean Platelet Volume 7.3 fL (7.4-10.4); Platelet Count 334 thou/uL (130-400); RBC Distribution Width 13.5 % (11.5-14.5); Red Blood Cell (RBC) Count 4.56 mill/uL (4.70-6.10); White Blood Cell (WBC) Count 11.8 thou/uL (4.8-10.8)
[2019-04-15 05:19] LABS: Anion Gap 18 mmol/L (10-20); BUN (Urea Nitrogen) 17 mg/dL (8.4-25.7); Calc. Creatinine Clearance 97 mL/min (70-130); Calcium 9.3 mg/dL (7.8-10.44); Carbon Dioxide 23 mmol/L (23-31); Chloride 100 mmol/L (98-107); Estimated GFR-MDRD 82; Glucose 312 mg/dL (83-110); Sodium 137 mmol/L (136-145)
[2019-04-15] MEDS: HumaLOG 300 UNITS/3 ML VIAL SC PRN ×3 (05:20→17:18)
[2019-04-15] MEDS: Vancomycin HCl 1 GM in Premix Bag 1 BAG IVPB SCH (06:16)
[2019-04-15] MEDS: Enoxaparin Sodium 100 MG/ML SYRINGE SC SCH ×2 (09:04→22:47)
[2019-04-15] MEDS: Nitroglycerin 2% Ointment 1 INCH/1 GM Packet TOP SCH ×2 (09:05→22:48)
[2019-04-15] MEDS: cloNIDine 0.1 MG TAB PO SCH ×3 (09:09→22:59)
[2019-04-15] MEDS: Carbidopa/Levodopa 25-100 mg Tablet PO SCH ×3 (09:09→22:59)
[2019-04-15] MEDS: Aspirin Chewable 81 MG TAB PER TUBE SCH (09:09)
[2019-04-15] MEDS: Multivitamin W/ Minerals 1 TAB PO SCH (09:10)
[2019-04-15] MEDS: Metoprolol Tartrate 50 MG TAB PO SCH ×2 (09:10→23:03)
[2019-04-15] MEDS: Vit A,C & E/Lutein/Minerals Tablet PO SCH ×2 (09:10→23:05)
[2019-04-15] MEDS: Stress 600 With Zinc 1 TAB PO SCH (09:10)
[2019-04-15] MEDS: Verapamil 80 MG TAB PER TUBE SCH ×3 (09:10→23:04)
--- NOTE | 2019-04-15 11:03 | PDOC.HOSPP ---
- Subjective Encounter Date: 04/15/19 Encounter Time: 11:00 Subjective: Mr. White was seen today in follow-up for encephalopathy. He has not had any significant change. - Objective Vital Signs & Weight: Vital Signs (12 hours) Temp Pulse Resp BP BP Pulse Ox 04/15/19 09:09 130/84 04/15/19 08:00 130/84 04/15/19 07:55 97.5 F L 89 28 H 91 L 04/15/19 04:58 98.9 F 34 H 148/95 H 92 L 04/14/19 23:59 98.7 F 106 H 28 H 160/95 H 96 Weight Admit Weight 222 lb 8 oz Weight 222 lb 8 oz I&O: 04/14/19 04/15/19 04/16/19 06:59 06:59 06:59 Intake Total 550 1345 Balance 550 1345 Result Diagrams: 04/15/19 04:49 04/15/19 04:49 Additional Labs: Accuchecks 04/15/19 04/14/19 04/14/19 05:23 21:26 16:46 POC Glucose 276 H 290 H 302 H 04/14/19 10:53 POC Glucose 276 H Hospitalist ROS - Medication Medications: Active Medications Generic Name Dose Route Start Last Admin Trade Name Freq PRN Reason Stop Dose Admin Aspirin 81 mg 04/13/19 09:00 04/15/19 09:09 Aspirin Chewable PER TUBE Not Given DAILY ASHLIE Carbidopa/Levodopa 1 tab 04/08/19 15:00 04/15/19 09:09 Sinemet 25-100 PO Not Given TID ASHLIE Clonidine 0.1 mg 04/10/19 09:00 04/15/19 09:09 Catapres PO Not Given TID ASHLIE Clonidine 0.2 mg 04/13/19 10:40 04/13/19 15:20 Cltqhuza-Faz-9 TD 0.2 mg Q7DAYS ASHLIE Administration Coenzyme Q10 200 mg 04/07/19 21:00 04/14/19 20:42 Coenzyme Q10 PO Not Given HS ASHLIE Enoxaparin Sodium 100 mg 04/09/19 21:00 04/15/19 09:04 Lovenox SC 100 mg 0900,2100 ASHLIE Administration Famotidine 20 mg 04/07/19 21:00 04/14/19 20:41 Pepcid PO Not Given HS ASHLIE Hydralazine HCl 10 mg 04/08/19 13:41 04/11/19 14:48 Apresoline SLOW IVP 10 mg Q4H PRN Administration hypertension Vancomycin HCl 1 gm/ Device 200 mls @ 200 mls/hr 04/08/19 18:00 04/15/19 06: 16 IVPB 200 mls 0600,1800 ASHLIE Administration Amino Acids/Electrolytes/Dextrose 1,000 mls @ 50 mls/hr 04/13/19 11:00 15:54 Clinimix E 4.25/5 IV 1,000 mls .Q20H ASHLIE Administration Insulin Human Lispro 0 units 04/06/19 08:27 04/15/19 05:20 Humalog SC 4 unit .MILD SLIDING SCALE PRN Administration Mild Correctional Scale Insulin Human Lispro 0 units 04/06/19 08:27 04/14/19 22:09 Humalog SC 3 unit .BEDTIME SLIDING SC PRN Administration Bedtime Correctional Scale Iron/Minerals/Multivitamins 1 tab 04/07/19 09:00 04/15/19 09:10 Theragran M PO Not Given DAILY [facility] Labetalol HCl 20 mg 04/13/19 04:12 04/14/19 01:30 Normodyne SLOW IVP 20 mg Q4H PRN Administration SBP Greater Than 170 Lorazepam 1 mg 04/09/19 09:59 04/15/19 04:52 Ativan SLOW IVP 1 mg Q4H PRN Administration Anxiety/Agitation Metoprolol Tartrate 50 mg 04/13/19 09:00 04/15/19 09:10 Lopressor PO Not Given BID [facility] Multivitamins/Minerals 1 tab 04/07/19 09:00 04/15/19 09:10 Ocuvite With Lutein PO Not Given BID [facility] Multivitamins/Zinc 1 tab 04/07/19 09:00 04/15/19 09:10 Stress 600 With Zinc PO Not Given DAILY [facility] Nitroglycerin 1 inch 04/14/19 21:00 04/15/19 09:05 Nitro-Bid 2% Ointment TOP 1 inch BID ASHLIE Administration Nortriptyline HCl 25 mg 04/07/19 21:00 04/14/19 20:41 Pamelor PO Not Given HS [facility] Quetiapine Fumarate 25 mg 04/09/19 21:00 04/14/19 20:41 Seroquel PO Not Given HS [facility] Rosuvastatin Calcium 20 mg 04/07/19 21:00 04/14/19 20:42 Crestor PO Not Given HS ASHLIE Tramadol HCl 50 mg 04/09/19 10:00 04/09/19 15:29 Ultram PO 50 mg Q4H PRN Administration Pain Verapamil HCl 80 mg 04/12/19 15:00 04/15/19 09:10 Calan PER TUBE Not Given TID ASHLIE - Exam Eye: PERRL Heart: RRR, no murmur, no gallops, no rubs, normal peripheral pulses Respiratory: no wheezes, no rales, no ronchi (+ coarse breath sounds) Gastrointestinal: soft, non-distended Extremities: 1+ LE edema Hosp A/P (1) Acute encephalopathy Code(s): G93.40 - ENCEPHALOPATHY, UNSPECIFIED Status: Acute (2) CAD (coronary artery disease) Code(s): I25.10 - ATHSCL HEART DISEASE OF [place] CORONARY ARTERY W/O ANG PCTRS Status: Chronic (3) Diabetes mellitus, type II Status: Chronic (4) Hypertension Code(s): I10 - ESSENTIAL (PRIMARY) HYPERTENSION Status: Chronic - Plan * Metabolic encephalopathy-? etiology * DVT in right lower extremity and upper extremity- Continue Lovenox * Nutrition- he is still not taking in nutrition reliably- discussed with the patient's . He pulled out his DHT 6 times, and continues to be encephalopathic. She would like him to have consistent nutrition- will consult GI for possible PEG tube * HTN- blood pressure is better * DM-Blood glucose is stable- continue SSI- Will add a low dose scheduled insulin
[2019-04-15] MEDS: D5W-AA 4.25% with LYTES 1,000 ML IV SCH (11:41)
--- NOTE | 2019-04-15 13:50 | PRG ---
DATE OF SERVICE: 04/15/2019 SUBJECTIVE: The patient is sitting up in bed, having oral care by nurse. The patient following commands now for the 1st time, able to stick out his tongue on command and do other things of a simple nature. He has not had diarrhea. He is voiding spontaneously. He has a midline in the right upper extremity. OBJECTIVE: VITAL SIGNS: He has been afebrile, T-max 99.7, and blood pressure 130/84. GENERAL: Awake, follows commands, opens eyes and establishes eye contact. Speech is still limited. LUNGS: Symmetric air entry. HEART: S1 and S2, regular rate. ABDOMEN: Soft, not distended. No bladder distention. LABORATORY DATA: White cell count 11.8, hemoglobin 13, and platelets 334. Creatinine 0.9. MRI did not show any abnormalities. Influenza A and B were negative. ASSESSMENT AND DISCUSSION: Coronary artery disease, type 2 diabetes, change in mental state for the past 3 days before admission, some concern with CSF findings, most likely due to blood penetration into the sample. Improving now steadily with a low suspicion for encephalitis. Job ID: [id number]
--- NOTE | 2019-04-15 14:27 | PDOC.EVN ---
Event Note - Event Note Event Note: Mr. White has been accepted in transfer to [facility] in the [facility] by Dr. Garcia.
--- NOTE | 2019-04-15 15:33 | CON ---
DATE OF CONSULTATION: 04/15/2019 REQUESTING PHYSICIAN: Dr. Cameron. REASON FOR CONSULTATION: Consider PEG tube placement. HISTORY OF PRESENT ILLNESS: Manjit White is a 79-year-old man, who was admitted to the hospital back on 04/06/2019 with what sounds like acute altered mental status. He has had a [facility] course over the past week. Lumbar puncture was evidently negative. MRI of the brain has been unrevealing. He had some intermittent fevers and has been on antibiotics. It was thought that he had some mild recent improvements, but he is still unable to meaningfully communicate. He has been getting Dobhoff tube feedings for the past several days, but has pulled this out about 6 times. Family is requesting PEG tube placement. He has had a prior prostatectomy and perhaps appendectomy in the past, but no other abdominal surgeries. Family has also requested transfer to [facility] and my understanding is that this has been accepted, but it is unclear exactly when he will be going. The patient has been diagnosed with right lower extremity DVT and is receiving Lovenox. REVIEW OF SYSTEMS: Unable to obtain from the patient due to his altered mental status. ALLERGIES: IODINE, PENICILLIN, BETADINE SOAP, AND TETANUS TOXOID. OUTPATIENT MEDICATIONS: 1. Aspirin. 2. Multivitamin. 3. Niacin. 4. Nortriptyline. 5. Pantoprazole 40 mg daily. 6. Crestor. 7. Glipizide. 8. Metformin. 9. Tramadol. 10. Victoza. 11. Verapamil. 12. Valsartan/hydrochlorothiazide. 13. Levofloxacin. 14. Guaifenesin. PAST MEDICAL HISTORY: Diabetes type 2, neuropathy, hypertension, sleep apnea, coronary artery disease with stent placed in 2004, BPH, depression, and prostatectomy. SOCIAL HISTORY: He is a former smoker. No alcohol or drug use. FAMILY HISTORY: Noncontributory. PHYSICAL EXAMINATION: VITAL SIGNS: Temperature 97.6, pulse 73, blood pressure 136/84, and 92% oxygen saturation on room air. GENERAL: A 79-year-old man lying in bed comfortably, in no distress, responding to internal stimuli. MENTAL STATUS: The patient does not follow commands or answer questions. He is responding to internal stimuli. SKIN: No jaundice. No rashes were palpable. HEENT: Eyes; no scleral icterus. Extraocular movements intact. ENT; mucous membranes moist. No oral lesions. LYMPH: No submandibular or supraclavicular lymphadenopathy. THYROID: Nontender to palpation. HEART: Regular rate and rhythm. LUNGS: Clear to auscultation bilaterally. ABDOMEN: Nondistended and obese. No surgical scars to the upper abdomen. He has what looks like a lower midline scar, which was possibly from prior prostatectomy. The abdomen is soft, nontender to palpation. Bowel sounds are present throughout. EXTREMITIES: No peripheral edema. VESSELS: Radial pulses 2+ bilaterally. LABORATORY STUDIES: WBC 11.8, hemoglobin 13.3, platelets 334. Sodium 137, potassium 4.0, BUN 17, creatinine 0.90, and glucose 328. IMAGING STUDIES: MRI of the brain from 04/11/2019 showed no significant abnormalities. ASSESSMENT AND PLAN: 1. Toxic metabolic encephalopathy, unclear cause. 2. Decline in oral intake and malnutrition, secondary to encephalopathy. I had a long discussion with the patient's family member today. I agree that PEG placement should be considered given the patient's failure to improve mental status and oral intake. We could plan for this tomorrow. I understand that the patient is planned to transfer to another facility, and that may happen as early as this evening, or maybe tomorrow. We will tentatively plan for PEG placement tomorrow here, but that should not interfere with transfer, as that could be performed at the other facility as well. Thank you for the consultation. Please call anytime with questions or concerns. Job ID: [id number]
[2019-04-15 20:06] VITALS: TEMP 98.3
[2019-04-15] MEDS ORDERED: Insulin Glargine 12 UNITS in Pre-Filled Syringe 1 EACH SC SCH (21:00)
[2019-04-15] MEDS: Famotidine 20 MG TAB PO SCH (23:03)
[2019-04-15] MEDS: Nortriptyline HCl 25 MG CAP PO SCH (23:04)
[2019-04-15] MEDS: Rosuvastatin 20 MG TAB PO SCH (23:04)
[2019-04-15] MEDS: Ubidecarenone 50 MG CAP PO SCH (23:04)
[2019-04-15 23:08] VITALS: BP 156/92
[2019-04-16] MEDS ORDERED: Insulin Glargine 12 UNITS in Pre-Filled Syringe 1 EACH SC SCH (09:00)
--- NOTE | 2019-04-18 10:35 | EEG ---
Referring Physician: Fabiola REEDER EEG # [id number] TEST TYPE: ROUTINE PORTABLE INPATIENT REPORT: AN EEG USING THE INTERNATIONAL TEN-TWENTY SYSTEM OF ELECTRODE PLACEMENT WAS PERFORMED. The best waking background is a 9 hertz alpha frequency. There is movement and EMG artifact during portion of the recording. The patient remained awake throughout the study. No epileptiform features were seen. Photic stimulation was unremarkable. IMPRESSION: THIS IS A NORMAL AWAKE insurance marketing rep: MONICA Overhead Cleaner: [email or web address]
== END 2019-04-16 00:18 | disposition short-term general hospital (02) | DRG 92 ==
LOC: ERS 03:00 → 2SE 08:14 → OBSVTOIN 04-07 14:36
PROVIDERS: ADMIT Emergency Medicine; ATTEND Emergency Medicine
PROC: 009U3ZX Drainage of Spinal Canal, Percutaneous Approach, Diagnostic (ICD-10-PCS; principal; 2019-04-09)
PROC: B01B1ZZ Fluoroscopy of Spinal Cord using Low Osmolar Contrast (ICD-10-PCS; 2019-04-09)
DX: G92 Toxic encephalopathy (principal); N39.0 Urinary tract infection, site not specified; I82.621 Acute embolism and thrombosis of deep veins of right upper extremity; I82.401 Acute embolism and thrombosis of unspecified deep veins of right lower extremity; E11.40 Type 2 diabetes mellitus with diabetic neuropathy, unspecified; I10 Essential (primary) hypertension; N40.0 Benign prostatic hyperplasia without lower urinary tract symptoms; F32.9 Major depressive disorder, single episode, unspecified; I25.10 Atherosclerotic heart disease of native coronary artery without angina pectoris; G47.33 Obstructive sleep apnea (adult) (pediatric); E78.5 Hyperlipidemia, unspecified; E66.9 Obesity, unspecified; H40.9 Unspecified glaucoma; I49.1 Atrial premature depolarization; E86.0 Dehydration; E11.51 Type 2 diabetes mellitus with diabetic peripheral angiopathy without gangrene; E78.00 Pure hypercholesterolemia, unspecified; I80.8 Phlebitis and thrombophlebitis of other sites; Z87.891 Personal history of nicotine dependence; Z68.31 Body mass index [BMI] 31.0-31.9, adult; Z95.5 Presence of coronary angioplasty implant and graft; Z90.79 Acquired absence of other genital organ(s); Z88.7 Allergy status to serum and vaccine; Z88.8 Allergy status to other drugs, medicaments and biological substances; Z79.84 Long term (current) use of oral hypoglycemic drugs; Z79.82 Long term (current) use of aspirin; Z79.1 Long term (current) use of non-steroidal anti-inflammatories (NSAID); Z79.899 Other long term (current) drug therapy; Z88.0 Allergy status to penicillin
CPT/HCPCS: 36415; 36416; 51701; 62270; 70450; 70553; 71045; 74018; 80048; 80053; 80202; 81003; 81015; 82140; 82565; 82805; 82945; 84157; 84484; 85014; 85018; 85025; 85049; 87040; 87070; 87086; 87205; 87804; 89051; 93005; 94760; 95816; 95819; 96360; 96372; J0131; J0360; J1630; J1650; J1815; J2001; J2060; J2704; J3010; J3370; J3486; J7120

== ENCOUNTER 2019-09-19 15:14 | Outpatient (CLI) | payer MEDICARE ==
--- NOTE | 2019-09-19 16:24 | RAD ---
2 VIEWS LUMBAR SPINE: Date: 09/19/2019 PROVIDED CLINICAL HISTORY: Back pain. FINDINGS: Five non-rib bearing lumbar-type vertebral bodies are present. There is a Grade I anterolisthesis of L5 on S1. Lumbar alignment appears otherwise normal. Vertebral body heights appear preserved. Disc sp eduin narrowing and end plate degenerative changes are seen at L4-5. Extensive vascular calcifications. Multilevel facet degenerative change. Surgical clips overlie the pelvis. IMPRESSION: Lower lumbar disc and facet degenerative change. POS: CONSTANCE
== END 2019-09-19 15:15 | disposition home or self-care (01) ==
LOC: BICRAD 15:14
PROVIDERS: ATTEND Internal Medicine
DX: M54.5 Low back pain (principal); M47.816 Spondylosis without myelopathy or radiculopathy, lumbar region; M51.36 Other intervertebral disc degeneration, lumbar region
CPT/HCPCS: 72100

== ENCOUNTER 2020-04-23 12:55 | Outpatient (CLI) | payer MEDICARE ==
--- NOTE | 2020-04-23 13:38 | ULT ---
US Renal Bilateral STANDARD: 04/23/2020 1:06 PM CLINICAL HISTORY: Chronic kidney disease. STUDY: Renal ultrasound COMPARISON: None. FINDINGS: Right kidney: Echogenicity: Normal. Masses/cysts: None. Hydronephrosis: None. Calcifications: None. Length: 11.3 cm Left kidney: Echogenicity: Normal. Masses/cysts: 1.4 cm cyst Hydronephrosis: None. Calcifications: None. Length: 12.4 cm Limited visualization of the urinary bladder is unremarkable. IMPRESSION: Left renal cyst
== END 2020-04-23 12:56 | disposition home or self-care (01) ==
LOC: BICULT 12:55
PROVIDERS: ATTEND Internal Medicine Nephrology
DX: N18.30 Chronic kidney disease, stage 3 unspecified (principal); N28.1 Cyst of kidney, acquired; I12.9 Hypertensive chronic kidney disease with stage 1 through stage 4 chronic kidney disease, or unspecified chronic kidney disease; R60.0 Localized edema
CPT/HCPCS: 36415; 76770; 80048

== ENCOUNTER 2021-02-12 16:28 | Outpatient (CLI) | payer MEDICARE | END 2021-02-12 16:29 | disposition home or self-care (01) | LOC: BICRAD 16:28 | PROVIDERS: ATTEND Family Medicine | DX: M25.571 Pain in right ankle and joints of right foot (principal); M19.071 Primary osteoarthritis, right ankle and foot; M25.871 Other specified joint disorders, right ankle and foot; M25.774 Osteophyte, right foot; Z98.890 Other specified postprocedural states ==

== ENCOUNTER 2024-11-25 08:03 | Emergency (ER) | payer MEDICARE | END 2024-11-25 09:33 | LOC: ERS 08:03 | DX: S00.83XA Contusion of other part of head, initial encounter (principal); I25.10 Atherosclerotic heart disease of native coronary artery without angina pectoris; E11.9 Type 2 diabetes mellitus without complications; I10 Essential (primary) hypertension; Z87.891 Personal history of nicotine dependence; W19.XXXA Unspecified fall, initial encounter; Y93.01 Activity, walking, marching and hiking | CPT/HCPCS: 70450; 72125 ==